=== PATIENT | male | born 1940 | race Caucasian/White ===

== ENCOUNTER → 2017-05-21 | Outpatient (CLI) | payer OTHER ==
[~2017-05-21] MED LIST: AMLO5 PO; ASPI81CH PO; ATOR40TA PO; CEFD300 PO; CHOL10002 PO; Cinnamon500 MG PO; DOCU100 PO; FISH OIL 1,0001 EAC1 PO; FOLI1 PO; FURO20 PO; HUMALOG 70/30 SQ; HYDCHL25 PO; INSUASPI SC; INSULANPEN SC; LOVA40 PO; METF500 PO; METO10 PO; METO50ER PO; METTREX2.5 PO; OXYACE5T PO; PIOG30 PO; POTA10T PO; RXOXYACE PO; RXPROM25 PO; TAMS.4ER PO; TRULICITY1.5 MG/0.5 SC; ZESTORETIC 20-121 EA PO; [UNRECOGNIZED DRUG - OTHER] PO
== END | disposition home or self-care (01) ==
LOC: LAB 13:06
DX: M86.172 Other acute osteomyelitis, left ankle and foot (principal)
CPT/HCPCS: 87070; 87077; 87186; 87205

== ENCOUNTER → 2018-07-18 | Outpatient (CLI) | payer MEDICARE | END | disposition home or self-care (01) | LOC: LAB EV 12:15 → LAB SHORT 12:15 | DX: T81.40XA Infection following a procedure, unspecified, initial encounter (principal) | CPT/HCPCS: 87070; 87205 ==

== ENCOUNTER → 2019-08-03 | Outpatient (CLI) | payer MEDICARE ==
[2019-08-03 17:46] LABS: Creatinine, Urine Random 42.4 mg/dL (27.00-270.00)
[2019-08-03 17:49] LABS: Microalb/Creat Ratio UR, Rand 344.34 mg/g (0.000-30.000)
== END ==
LOC: LAB SHORT 13:17 → LAB EV 13:17
PROVIDERS: Nurse Practitioner Family
DX: E11.65 Type 2 diabetes mellitus with hyperglycemia (principal)
CPT/HCPCS: 82043; 82570

== ENCOUNTER 2020-04-29 06:12 | Day surgery (SDC) | payer MEDICARE ==
[~2020-04-29] VITALS: Ht 177.8 cm; Wt 115.1 kg
[~2020-04-29 06:12] MED LIST changes: +ASPIR 8181 MG PO; +ATORVASTATIN CA80 MG PO; +BASAGLAR K100 UNIT/1 SC; +CARV3.125 PO; -CHOL10002 PO; +FURO40 PO; +HUMULIN 70100 UNIT/4 SC; +OMEGA-3 FISH O1 EAC6 PO; +VITAMIN D310 MC4 PO
--- NOTE | 2020-04-29 08:42 | NUR ---
04/29/20 0842 MICHELET BOBBY PT VSS ON ROOM AIR. IV PATENT. SBA TO RECLINER. PT TOLERATING PO INTAKE. DENIES NAUSEA/PAIN, REPORTS FOOT IS NUMB AT THIS TIME. DRESSING C/D/I. DEONTE ARBOLEDA ENGAGED IN DC TEACHING AND ALL QUESTIONS ASKED AND ANSWERED. PT'S SON TO PICK PT UP.
== END 2020-04-29 08:44 | disposition home or self-care (01) ==
LOC: ORSCSDS 06:12
PROVIDERS: Podiatrist Foot & Ankle Surgery
PROC: 0L8W0ZZ Division of Left Foot Tendon, Open Approach (ICD-10-PCS; principal; 2020-04-29 07:30)
PROC: 0SNQ0ZZ Release Left Toe Phalangeal Joint, Open Approach (ICD-10-PCS; principal; 2020-04-29 07:30)
DX: M20.42 Other hammer toe(s) (acquired), left foot (principal); I10 Essential (primary) hypertension; I25.10 Atherosclerotic heart disease of native coronary artery without angina pectoris; G47.33 Obstructive sleep apnea (adult) (pediatric); Z87.891 Personal history of nicotine dependence; E78.5 Hyperlipidemia, unspecified; E66.01 Morbid (severe) obesity due to excess calories; Z68.36 Body mass index [BMI] 36.0-36.9, adult; Z79.4 Long term (current) use of insulin; Z79.899 Other long term (current) drug therapy; Z79.82 Long term (current) use of aspirin
CPT/HCPCS: 82947; J0690; J2250; J2704; J3010; J7120

== ENCOUNTER → 2020-05-11 | Outpatient (CLI) | payer MEDICARE ==
[2020-05-11 12:31] LABS: BASOPHILS ABSOLUTE AUTO 0.06 K/mm3 (0.00-0.23); BASOPHILS PERCENT AUTO 1 % (0-2); EOSINOPHILS ABSOLUTE AUTO 0.21 K/mm3 (0.00-0.68); EOSINOPHILS PERCENT AUTO 2 % (0-6); Hematocrit 37.7 % (37.0-53.0); Hemoglobin 12.7 g/dL (13.5-17.5); IMMATURE GRAN ABSOLUTE AUTO 0.06 K/mm3 (0.00-0.10); IMMATURE GRAN PERCENT AUTO 1 % (0-1); LYMPHOCYTES ABSOLUTE AUTO 1.15 K/mm3 (0.84-5.20); LYMPHOCYTES PERCENT AUTO 10 % (21-46); MONOCYTES ABSOLUTE AUTO 0.58 K/mm3 (0.16-1.47); MONOCYTES PERCENT AUTO 5 % (4-13); Mean Corpuscular HGB 29.1 pg (26.0-34.0); Mean Corpuscular HGB Conc 33.7 g/dL (31.5-36.5); Mean Corpuscular Volume 87 fL (80-100); Mean Platelet Volume 10.6 fL (9.1-12.4); NEUTROPHILS ABSOLUTE AUTO 9.22 K/mm3 (1.96-9.15); NEUTROPHILS PERCENT AUTO 82 % (41-73); Platelet Count 268 K/mm3 (150-400); RDW Coefficient Variation 13.1 % (11.7-14.2); RDW Standard Deviation 40.8 fL (35.1-46.3); Red Blood Cell Count 4.36 M/mm3 (4.30-5.90); White Blood Cell Count 11.28 K/mm3 (4.00-11.30)
[2020-05-11 12:50] LABS: Albumin, Blood 3.6 g/dL (3.4-5.0); Bilirubin, Total 0.7 mg/dL (0.1-1.0); Bun/Creatinine Ratio 21.9 (12.0-20.0); Calcium, Blood 8.9 mg/dL (8.5-10.1); Creatinine, Blood 2.33 mg/dL (0.60-1.20); Globulin, Blood 3.5 g/dL (2.2-4.0); Total Protein, Blood 7.1 g/dL (6.4-8.2)
== END ==
LOC: LAB EV 12:27 → LAB SHORT 12:27
PROVIDERS: Physician Assistant
DX: E11.65 Type 2 diabetes mellitus with hyperglycemia (principal)
CPT/HCPCS: 80053; 83036; 85025

== ENCOUNTER 2020-06-07 00:52 | Day surgery (SDC) | payer MEDICARE | END 2020-06-07 22:53 | disposition home or self-care (01) | LOC: WOUND 00:52 | DX: E11.621 Type 2 diabetes mellitus with foot ulcer (principal); L97.522 Non-pressure chronic ulcer of other part of left foot with fat layer exposed; Z88.1 Allergy status to other antibiotic agents; Z88.0 Allergy status to penicillin; Z88.2 Allergy status to sulfonamides; Z87.891 Personal history of nicotine dependence | CPT/HCPCS: A9270; G0463 ==

== ENCOUNTER 2020-06-14 01:08 | Day surgery (SDC) | payer MEDICARE | END 2020-06-14 22:40 | disposition home or self-care (01) | LOC: WOUND 01:08 | DX: E11.621 Type 2 diabetes mellitus with foot ulcer (principal); L97.526 Non-pressure chronic ulcer of other part of left foot with bone involvement without evidence of necrosis; L97.522 Non-pressure chronic ulcer of other part of left foot with fat layer exposed; E11.59 Type 2 diabetes mellitus with other circulatory complications | CPT/HCPCS: A9270 ==

== ENCOUNTER 2020-06-21 01:27 | Day surgery (SDC) | payer MEDICARE | END 2020-06-21 23:05 | disposition home or self-care (01) | LOC: WOUND 01:27 | DX: E11.621 Type 2 diabetes mellitus with foot ulcer (principal); L97.526 Non-pressure chronic ulcer of other part of left foot with bone involvement without evidence of necrosis; L97.522 Non-pressure chronic ulcer of other part of left foot with fat layer exposed; E11.59 Type 2 diabetes mellitus with other circulatory complications | CPT/HCPCS: A9270 ==

== ENCOUNTER 2020-06-28 00:12 | Day surgery (SDC) | payer MEDICARE | END 2020-06-28 22:59 | disposition home or self-care (01) | LOC: WOUND 00:12 | DX: E11.621 Type 2 diabetes mellitus with foot ulcer (principal); L97.526 Non-pressure chronic ulcer of other part of left foot with bone involvement without evidence of necrosis; E11.59 Type 2 diabetes mellitus with other circulatory complications | CPT/HCPCS: A9270; G0463 ==

== ENCOUNTER 2020-07-05 00:46 | Day surgery (SDC) | payer MEDICARE | END 2020-07-05 22:56 | disposition home or self-care (01) | LOC: WOUND 00:46 | DX: E11.621 Type 2 diabetes mellitus with foot ulcer (principal); L97.529 Non-pressure chronic ulcer of other part of left foot with unspecified severity; E11.59 Type 2 diabetes mellitus with other circulatory complications | CPT/HCPCS: G0463 ==

== ENCOUNTER 2020-07-19 00:24 | Day surgery (SDC) | payer MEDICARE | END 2020-07-19 22:49 | disposition home or self-care (01) | LOC: WOUND 00:24 | DX: Z09 Encounter for follow-up examination after completed treatment for conditions other than malignant neoplasm (principal); Z86.31 Personal history of diabetic foot ulcer; E11.59 Type 2 diabetes mellitus with other circulatory complications | CPT/HCPCS: G0463 ==

== ENCOUNTER 2020-11-13 20:41 | Observation (INO) | payer MEDICARE ==
[~2020-11-13] VITALS: Ht 177.8 cm; Wt 124.7 kg
[2020-11-13 21:39] LABS: Source, Urine Clean Catch
[2020-11-13 21:54] LABS: Appearance, Urine Clear (Clear); Bilirubin, Urine Neg (Neg); Blood, Urine 4+ (Neg); Color, Urine Yellow (P-Yellow); Glucose Qualitative, Urine 4+ (Neg); Ketones, Urine Neg (Neg); Leukocyte Esterase, Urine Neg (Neg); Nitrite, Urine Neg (Neg); Protein, Urine 4+ (Neg); Specific Gravity, Urine 1.015 (1.003-1.022); Urobilinogen, Urine NORM (Normal)
[2020-11-13 22:03] LABS: BASOPHILS ABSOLUTE AUTO 0.02 K/mm3 (0.00-0.23); BASOPHILS PERCENT AUTO 0 % (0-2); EOSINOPHILS ABSOLUTE AUTO 0.12 K/mm3 (0.00-0.68); EOSINOPHILS PERCENT AUTO 1 % (0-6); Hematocrit 39.5 % (37.0-53.0); Hemoglobin 13.1 g/dL (13.5-17.5); IMMATURE GRAN ABSOLUTE AUTO 0.04 K/mm3 (0.00-0.10); IMMATURE GRAN PERCENT AUTO 0 % (0-1); LYMPHOCYTES PERCENT AUTO 7 % (21-46); MONOCYTES PERCENT AUTO 5 % (4-13); Mean Corpuscular HGB 28.5 pg (26.0-34.0); Mean Corpuscular HGB Conc 33.2 g/dL (31.5-36.5); Mean Corpuscular Volume 86 fL (80-100); Mean Platelet Volume 10.3 fL (9.1-12.4); NEUTROPHILS ABSOLUTE AUTO 10.43 K/mm3 (1.96-9.15); NEUTROPHILS PERCENT AUTO 87 % (41-73); Platelet Count 198 K/mm3 (150-400); RDW Coefficient Variation 13.2 % (11.7-14.2); RDW Standard Deviation 41.6 fL (35.1-46.3); Red Blood Cell Count 4.59 M/mm3 (4.30-5.90); White Blood Cell Count 12.01 K/mm3 (4.00-11.30)
[2020-11-13 22:04] LABS: Amorphous Light (0-Heavy); Bacteria Rare /hpf; Red Blood Cells, Urine 25-50 /hpf (0-2); Squamous Epithelial Cells Rare /hpf (Few); White Blood Cells, Urine 0-2 /hpf (0-5)
[2020-11-13 22:23] LABS: Albumin/Globulin Ratio 0.8 (0.8-1.8); Bilirubin, Total 0.8 mg/dL (0.1-1.0); Bun/Creatinine Ratio 17.2 (12.0-20.0); Calcium, Blood 8.9 mg/dL (8.5-10.1); Creatinine, Blood 1.22 mg/dL (0.60-1.20); Globulin, Blood 3.9 g/dL (2.2-4.0); Potassium, Blood 4.7 mmol/L (3.5-5.5); Total Protein, Blood 6.9 g/dL (6.4-8.2)
[2020-11-14 05:07] LABS: BASOPHILS ABSOLUTE AUTO 0.02 K/mm3 (0.00-0.23); BASOPHILS PERCENT AUTO 0 % (0-2); EOSINOPHILS ABSOLUTE AUTO 0.09 K/mm3 (0.00-0.68); EOSINOPHILS PERCENT AUTO 1 % (0-6); Hematocrit 36.7 % (37.0-53.0); Hemoglobin 12.2 g/dL (13.5-17.5); IMMATURE GRAN ABSOLUTE AUTO 0.05 K/mm3 (0.00-0.10); IMMATURE GRAN PERCENT AUTO 1 % (0-1); LYMPHOCYTES ABSOLUTE AUTO 0.77 K/mm3 (0.84-5.20); LYMPHOCYTES PERCENT AUTO 7 % (21-46); MONOCYTES PERCENT AUTO 7 % (4-13); Mean Corpuscular HGB 28.8 pg (26.0-34.0); Mean Corpuscular HGB Conc 33.2 g/dL (31.5-36.5); Mean Corpuscular Volume 87 fL (80-100); NEUTROPHILS ABSOLUTE AUTO 8.92 K/mm3 (1.96-9.15); NEUTROPHILS PERCENT AUTO 85 % (41-73); Platelet Count 162 K/mm3 (150-400); RDW Coefficient Variation 13.2 % (11.7-14.2); RDW Standard Deviation 41.6 fL (35.1-46.3); Red Blood Cell Count 4.23 M/mm3 (4.30-5.90); White Blood Cell Count 10.55 K/mm3 (4.00-11.30)
[2020-11-14 05:35] LABS: Bun/Creatinine Ratio 15.1 (12.0-20.0); Calcium, Blood 8.6 mg/dL (8.5-10.1); Creatinine, Blood 1.26 mg/dL (0.60-1.20); Potassium, Blood 3.8 mmol/L (3.5-5.5)
--- NOTE | 2020-11-14 07:51 | NUR ---
PT ADMITTED FROM ED. PT HYPERTENSIVE. RECHECK BP EVEN HIGHER, IV PAIN MED GIVEN. RECHECK BP SYSTOLIC IN 150'S. PT DECLINING PAIN ALL NIGHT. IVF INFUSING. DENIES CP, SOB. PT NPO PER ORDER. PT IMPULSIVE AT TIMES, BED ALARM IN PLACE. PT UNSTEADY ON FEET, 1 PERSON ASSIST.
--- NOTE | 2020-11-14 13:32 | NUR ---
PT CONTINUES TO REFUSE USE OF CALL LIGHT, CONTINUES TO SET OF TAB ALARM DURING SHIFT. UNSTEADY ON HIS FEET. ATTEMPTED TO ASSIST PATIENT TO RESTROOM OR OFFER URINAL, BOTH REFUSED. SPOKE WITH PATIENT ABOUT HIS RISK OF FALLING AND HE DECLINES DISCUSSION. CALLING HIS SON ON THE PHONE AND ASKING SON TO PICK HIM UP.
--- NOTE | 2020-11-14 15:17 | NUR ---
SPOKE WITH PT'S SON. ACCORDING TO HIM PT HAS BEEN SHOWING AN INCREASE IN CONFUSION AND FORGETFULLNESS AT HOME.
--- NOTE | 2020-11-14 16:36 | NUR ---
SHIFT SUMMARY PT HAS BEEN CONFUSED AND FORGETFUL AT TIMES TODAY. SPOKE WITH PATIENTS SON WHO CONFIRMED THIS HAS BEEN INCREASING AT HOME. PT CONTINUES TO WANT TO LEAVE AND CALLS SON FREQUENTLY TO PICK HIM UP. PT HAS DENIED PAIN DURING SHIFT AND REPORTS GAS. VOIDS IN TOILET REFUSES TO ALLOW URINAL. DOES NOT USE CALL LIGHT. ADVANCED TO CLEARS AND HAS TOLERATED BROTH AND ICE WATER WELL, DENIES AN INCREASE IN PAIN. IV FLUIDS INFUSING, PLAN TO SEE IF PT TOLERATES WELL AND POSSIBLY DISCHARGE TODAY.
--- NOTE | 2020-11-14 19:43 | NUR ---
DISCHARGE PT LEFT AT 1830 VIA WHEELCHAIR WITH DAUGHTER. DISCHARGE INSTRUCTIONS GONE OVER AT LENGTH WITH PATIENT AND DAUGHTER. THEY PLAN TO TAKE ALL MEDICATIONS WITH THEM TO THEIR FOLLOW UP APPOINTMENT AT [place] [place]. THE PATIENT TOLERATED HIS PO INTAKE WELL WITH NO INCREASE IN PAIN. IV REMOVED PRIOR TO DISCHARGE.
== END 2020-11-14 18:29 | disposition home or self-care (01) ==
LOC: ER 20:41 → SURS 20:42
PROVIDERS: Physician Assistant; ADMIT Family Medicine
DX: K91.89 Other postprocedural complications and disorders of digestive system (principal); K85.90 Acute pancreatitis without necrosis or infection, unspecified; E11.65 Type 2 diabetes mellitus with hyperglycemia; I25.10 Atherosclerotic heart disease of native coronary artery without angina pectoris; I12.9 Hypertensive chronic kidney disease with stage 1 through stage 4 chronic kidney disease, or unspecified chronic kidney disease; E11.22 Type 2 diabetes mellitus with diabetic chronic kidney disease; N18.30 Chronic kidney disease, stage 3 unspecified; E87.1 Hypo-osmolality and hyponatremia; D64.9 Anemia, unspecified; Z79.899 Other long term (current) drug therapy; Z79.4 Long term (current) use of insulin; Z88.1 Allergy status to other antibiotic agents; Z88.0 Allergy status to penicillin; Z88.2 Allergy status to sulfonamides; Z95.1 Presence of aortocoronary bypass graft; Z87.891 Personal history of nicotine dependence; Y84.8 Other medical procedures as the cause of abnormal reaction of the patient, or of later complication, without mention of misadventure at the time of the procedure; Y73.0 Diagnostic and monitoring gastroenterology and urology devices associated with adverse incidents
CPT/HCPCS: 36415; 74177; 80048; 80053; 81001; 82947; 83690; 85025; 93005; 93010; 96361; 96374; 99285-25; G0378; J1650; J1815; J3010; J7030; J7120; Q9967

== ENCOUNTER 2020-12-08 12:44 | Inpatient (IN) | payer MEDICARE ==
[~2020-12-08] VITALS: Ht 177.8 cm; Wt 109.6 kg
[2020-12-08 13:23] LABS: BASOPHILS ABSOLUTE AUTO 0.04 K/mm3 (0.00-0.23); BASOPHILS PERCENT AUTO 1 % (0-2); EOSINOPHILS ABSOLUTE AUTO 0.21 K/mm3 (0.00-0.68); EOSINOPHILS PERCENT AUTO 3 % (0-6); Hematocrit 37.4 % (37.0-53.0); Hemoglobin 12.4 g/dL (13.5-17.5); IMMATURE GRAN ABSOLUTE AUTO 0.02 K/mm3 (0.00-0.10); IMMATURE GRAN PERCENT AUTO 0 % (0-1); LYMPHOCYTES ABSOLUTE AUTO 1.08 K/mm3 (0.84-5.20); LYMPHOCYTES PERCENT AUTO 13 % (21-46); MONOCYTES ABSOLUTE AUTO 0.39 K/mm3 (0.16-1.47); MONOCYTES PERCENT AUTO 5 % (4-13); Mean Corpuscular HGB 28.2 pg (26.0-34.0); Mean Corpuscular HGB Conc 33.2 g/dL (31.5-36.5); Mean Corpuscular Volume 85 fL (80-100); Mean Platelet Volume 10.3 fL (9.1-12.4); NEUTROPHILS ABSOLUTE AUTO 6.73 K/mm3 (1.96-9.15); NEUTROPHILS PERCENT AUTO 79 % (41-73); Platelet Count 213 K/mm3 (150-400); RDW Coefficient Variation 14.4 % (11.7-14.2); RDW Standard Deviation 44.9 fL (35.1-46.3); Red Blood Cell Count 4.39 M/mm3 (4.30-5.90); White Blood Cell Count 8.47 K/mm3 (4.00-11.30)
[2020-12-08 14:00] LABS: Alanine Aminotransfer (ALT/SGP 31 U/L (12-78); Albumin, Blood 2.5 g/dL (3.4-5.0); Albumin/Globulin Ratio 0.7 (0.8-1.8); Alk Phos 164 U/L (50-136); Anion Gap 6 mmol/L (6-16); Aspartate Aminotrans (AST/SGOT 16 U/L (12-37); Bilirubin, Total 0.7 mg/dL (0.1-1.0); Blood Urea Nitrogen 17 mg/dL (8-24); Bun/Creatinine Ratio 13.2 (12.0-20.0); CO2, Blood 28 mmol/L (21-32); Calcium, Blood 8.6 mg/dL (8.5-10.1); Chloride, Blood 104 mmol/L (98-108); Creatinine, Blood 1.29 mg/dL (0.60-1.20); Globulin, Blood 3.8 g/dL (2.2-4.0); Glomerular Filtration Rate 54 (60-); Glucose, Blood 216 mg/dL (70-99); Potassium, Blood 4.4 mmol/L (3.5-5.5); Sodium, Blood 138 mmol/L (136-145); Total Protein, Blood 6.3 g/dL (6.4-8.2); Troponin I <0.015 ng/mL (0.000-0.040)
[2020-12-08 18:49] LABS: SARS-Cov-2 (COVID-19) PCR, MMC NEGATIVE (NEGATIVE)
--- NOTE | 2020-12-08 23:02 | NUR ---
PATIENT IS A NEW ADMIT FROM THE ED. ARRIVED VIA W/C AND ONE ASSIST TO BED. AXOX 3 AND ON ROOM AIR. USING URINAL AT BEDSIDE. IV LASIX GIVEN IN ED. TELEMETRY PLACED AND TECH REPORTS NSR 76 W/PVC. HYPERTENSIVE ON ADMIT. EDEMA TO BLE. ORIENTED TO ROOM AND CALL LIGHT SYSTEM. WARM BLANKET PROVIDED. PATIENT REPORTS WANTING TO REST AFTER ASSESSMENT WITH URINAL AT BEDSIDE.
--- NOTE | 2020-12-08 23:54 | NUR ---
PATIENT WENT OUT FOR IMAGING, CAT SCAN AND BACK VIA W/C. TOLERATED WELL. BACK IN BED.
--- NOTE | 2020-12-09 03:54 | NUR ---
SHIFT SUMMARY PATIENT HAD NO ACUTE CHANGES OBSERVED. AXOX 3 AND SBA USING URINAL AT BEDSIDE. PIV REMAINS INTACT. SOCK FOLDER REPORTS NSR 76 W/PVC. EDEMA +3 TO BLE. IV LASIX GIVEN IN ED. HYPERTENSIVE ON ADMIT AND 158/88 FOR AM VITALS. DENIES CHEST PAIN, SOB, AND N/V. REPORTS LIVE WITH SPOUSE AND DAUGHTER STOPS IN TO HELP. CALL LIGHT IN REACH. BED IN LOWEST POSITION. WILL CONTINUE TO MONITOR UNTIL DAY SHIFT NURSE ASSUMES CARE.
[2020-12-09 05:42] LABS: BASOPHILS ABSOLUTE AUTO 0.04 K/mm3 (0.00-0.23); BASOPHILS PERCENT AUTO 1 % (0-2); EOSINOPHILS ABSOLUTE AUTO 0.18 K/mm3 (0.00-0.68); EOSINOPHILS PERCENT AUTO 3 % (0-6); Hematocrit 37.8 % (37.0-53.0); Hemoglobin 12.3 g/dL (13.5-17.5); IMMATURE GRAN ABSOLUTE AUTO 0.02 K/mm3 (0.00-0.10); IMMATURE GRAN PERCENT AUTO 0 % (0-1); LYMPHOCYTES ABSOLUTE AUTO 1.39 K/mm3 (0.84-5.20); LYMPHOCYTES PERCENT AUTO 20 % (21-46); MONOCYTES PERCENT AUTO 7 % (4-13); Mean Corpuscular HGB 27.7 pg (26.0-34.0); Mean Corpuscular HGB Conc 32.5 g/dL (31.5-36.5); Mean Corpuscular Volume 85 fL (80-100); NEUTROPHILS ABSOLUTE AUTO 4.87 K/mm3 (1.96-9.15); NEUTROPHILS PERCENT AUTO 70 % (41-73); Platelet Count 183 K/mm3 (150-400); RDW Coefficient Variation 14.4 % (11.7-14.2); RDW Standard Deviation 43.9 fL (35.1-46.3); Red Blood Cell Count 4.44 M/mm3 (4.30-5.90)
[2020-12-09 06:14] LABS: Albumin, Blood 2.3 g/dL (3.4-5.0); Albumin/Globulin Ratio 0.6 (0.8-1.8); Bilirubin, Total 0.8 mg/dL (0.1-1.0); Bun/Creatinine Ratio 13.7 (12.0-20.0); Calcium, Blood 8.1 mg/dL (8.5-10.1); Creatinine, Blood 1.24 mg/dL (0.60-1.20); Globulin, Blood 3.6 g/dL (2.2-4.0); Potassium, Blood 3.9 mmol/L (3.5-5.5); Total Protein, Blood 5.9 g/dL (6.4-8.2)
[2020-12-09] MEDS ORDERED: ZESTRIL40 M1 PO (07:41)
--- NOTE | 2020-12-09 11:00 | NUR ---
ADMIT: 12/09/20 DISCHARGE: TBD DX: CHF EXAC CC: Juan Dugan RESIDENCE: HOME WITH - [id number], [place] [address] NEXT OF KIN/CONTACT: MICHELLE JOHNSON, - [phone] AND ALANA CLEANING, SON - [phone] DME: CPAP, DM SUPPLIES CCM: Christine Gillespie [facility] HHC/HOSPICE PRIOR TO ADMIT: NONE UPDATE 12/09/20: PT. ADMITTED FOR CHF EXACERBATION. PT. IS A HOSPITAL RE-ADMIT PER NOTES. POTENTIALLY NOT TAKING HIS MEDICATION PRESCRIBED INCLUDING LASIX. HE WAS ADMITTED ON SAT. 11/13/20 AND D/C ON 11/14/20 (PANCREATITIS). [facility] CARE MANAGEMENT DID NOT WORK WITH PATIENT AT THAT TIME HE WAS ADMITTED AND DISCHARGED OVER THE WEEKEND. IN READING THROUGH THE PHYSICIANS NOTES FROM THAT HOSPITAL STAY, PT. WAS INSISTENT THAT HE DISCHARGE FROM THE HOSPITAL. DR. BROWER RECONCILED HIS MEDICATION AND NOTED THAT HIS LIST GIVEN TO THE ED WAS NOT MATCHING THE LIST OF MEDICATIONS THAT HE WAS SUPPOSED TO BE TAKING. CONSIDERABLE AMOUNT OF TIME SPENT RECONCILING MEDICATIONS. FAMILY WAS ADVISED TO BRING ALL MEDICATIONS TO HOSPITAL F/U VISIT. C WAS ALSO ORDERED AT THAT TIME. IN REVIEWING THE [facility] EMR NOTES, I DO NOT SEE ANY CORRESPONDENCE FROM [facility]. I AM NOT SURE BASED ON [facility] RECORDS WHERE THE PREVIOUS ORDER WAS SENT. I HAVE LEFT A MESSAGE FOR [facility] TO RETURN CALL TO FIND OUT IF THEY HAD RECEIVED A REFERRAL. PT. HAS BEEN REFERRED TO CHRONIC CARE MANAGEMENT AT [facility]. ASSIGNED TO CHRISTINE GILLESPIE LPN AND SEEING HER MONTHLY. HE WAS SCHEDULED ON 11/24/20 FOR A VISIT WITH CHRISTINE AND CANCELLED. PER NOTES FROM DR. BROWER DURING LAST HOSPITAL STAY, IT APPEARS THAT PT. WAS NO LONGER WANTING CCM SERVICES. HE CERTAINLY WOULD BENEFIT FROM CCM. PLAN TO ASSESS LIVING SITUATION AND DETERMINE IF PT. HAS THE CARE/SUPPORT IN THE HOME THAT HE NEEDS. ANTICIPATED NEEDS AT TIME OF DISCHARGE TO INCLUDE: HOME HEALTH CARE/CCM, POTENTIAL CAREGIVER SUPPORT, DISCUSSION REGARDING MEDICATION COMPLIANCE, DETAILED MED LIST FROM RECONCILED [facility] EMR. VISIT SPECIFICALLY TO BRING IN MEDICATIONS AND DISPOSE OF THOSE THAT HE SHOULD NO LONGER BE TAKING. CONSIDER MONTHLY PILL CONTAINER TO BE SET UP WITH MEDICATIONS MONTHLY BE CCM OR EFM STAFF.
--- NOTE | 2020-12-09 22:14 | NUR ---
CBG 378. HOSPITALIST DR POSADAS NOTIFIED AND ORDER TO GIVEN HS DOSE OF HUMALOG SLIDING SCALE X ONE.
--- NOTE | 2020-12-10 03:17 | NUR ---
SHIFT SUMMARY PATIENT HAD NO ACUTE CHANGES OBSERVED. AXO 4 AND SBA TO BR. CBG 373 AND HUMALOG GIVEN PER HS LOW SLIDING SCALE X ONE PER HOSPITALIST DR POSADAS. PIV REMAINS INTACT. OIL AND GAS SPECIALIST REPORTS SR 62 W/BBB AND FIRST DEGREE. FLUID RESTRICTIONS 2,000 mL. USES URINAL AT BEDSIDE/CHAIR. VSS/AFEBRILE. DENIES PAIN, SOB, AND N/V. UP IN CHAIR THIS SHIFT. CALL LIGHT IN REACH. BED IN LOWEST POSITION. TM
[2020-12-10 05:38] LABS: BASOPHILS ABSOLUTE AUTO 0.04 K/mm3 (0.00-0.23); BASOPHILS PERCENT AUTO 1 % (0-2); EOSINOPHILS ABSOLUTE AUTO 0.26 K/mm3 (0.00-0.68); EOSINOPHILS PERCENT AUTO 4 % (0-6); Hematocrit 37.9 % (37.0-53.0); Hemoglobin 12.5 g/dL (13.5-17.5); IMMATURE GRAN ABSOLUTE AUTO 0.01 K/mm3 (0.00-0.10); IMMATURE GRAN PERCENT AUTO 0 % (0-1); LYMPHOCYTES PERCENT AUTO 18 % (21-46); MONOCYTES ABSOLUTE AUTO 0.52 K/mm3 (0.16-1.47); MONOCYTES PERCENT AUTO 8 % (4-13); Mean Corpuscular HGB 28.2 pg (26.0-34.0); Mean Corpuscular Volume 85 fL (80-100); Mean Platelet Volume 10.2 fL (9.1-12.4); NEUTROPHILS ABSOLUTE AUTO 4.51 K/mm3 (1.96-9.15); NEUTROPHILS PERCENT AUTO 69 % (41-73); Platelet Count 184 K/mm3 (150-400); RDW Coefficient Variation 14.4 % (11.7-14.2); RDW Standard Deviation 43.8 fL (35.1-46.3); Red Blood Cell Count 4.44 M/mm3 (4.30-5.90); White Blood Cell Count 6.54 K/mm3 (4.00-11.30)
[2020-12-10 05:57] LABS: Bun/Creatinine Ratio 16.6 (12.0-20.0); Calcium, Blood 8.9 mg/dL (8.5-10.1); Creatinine, Blood 1.57 mg/dL (0.60-1.20); Potassium, Blood 4.1 mmol/L (3.5-5.5)
--- NOTE | 2020-12-10 10:49 | NUR ---
PROLONGED QTC, PER STATE EDITOR, 0.51. DR SMILEY NOTIFIED VIA TELEPHONE. NO NEW ORDERS.
--- NOTE | 2020-12-10 23:16 | NUR ---
med tele reported bi geminy and then trigeminy into the 140's. Pt had PCV's this am, but no noted bi or tri geminy. VSS. BP: 156/58, T: 99.2 temporal, Resps: 13. sats: 92% on room air. Charge nurse notified and call placed to MD pulpwood contractor. Dr Guardado ordered stat Troponin. Pt denies chest pain and SOB. Call light in reach
--- NOTE | 2020-12-11 00:10 | NUR ---
troponin level WNL. See documentation
--- NOTE | 2020-12-11 04:21 | NUR ---
SUGAR COATING HAND SUMMARY ADMITTED FOR CHF EXACERBATION. PT IS FULL CODE. PT HAD EPISODE OF INCREASED HR - 145 PER BALL ROLLING MACHINE OPERATOR. RATE THEN DROPPED BACK INTO THE 70S BUT PT BEGAN SHOWING BIGEMINY/TRIGEMINY ON THE TELE MONITOR. PT HAD PVCS ALL DAY YESTERDAY, BUT NO OCCURRENCES OF BIGEMINY OR TRIGEMINY. MD WAS CONTACTED. STAT TROPONIN WAS NEGATIVE. PT DENIED ANY CHEST PAIN OR OTHER SYMPTOMS AT THE TIME OF THE OCCURRENCE. PT HAS BEEN RESTING COMFORTABLY SINCE. CALL LIGHT WITHIN REACH.
[2020-12-11 06:52] LABS: BASOPHILS ABSOLUTE AUTO 0.03 K/mm3 (0.00-0.23); BASOPHILS PERCENT AUTO 1 % (0-2); EOSINOPHILS ABSOLUTE AUTO 0.22 K/mm3 (0.00-0.68); EOSINOPHILS PERCENT AUTO 4 % (0-6); Hematocrit 37.4 % (37.0-53.0); Hemoglobin 12.1 g/dL (13.5-17.5); IMMATURE GRAN ABSOLUTE AUTO 0.01 K/mm3 (0.00-0.10); IMMATURE GRAN PERCENT AUTO 0 % (0-1); LYMPHOCYTES ABSOLUTE AUTO 1.38 K/mm3 (0.84-5.20); LYMPHOCYTES PERCENT AUTO 24 % (21-46); MONOCYTES ABSOLUTE AUTO 0.41 K/mm3 (0.16-1.47); MONOCYTES PERCENT AUTO 7 % (4-13); Mean Corpuscular HGB 27.9 pg (26.0-34.0); Mean Corpuscular HGB Conc 32.4 g/dL (31.5-36.5); Mean Corpuscular Volume 86 fL (80-100); Mean Platelet Volume 10.5 fL (9.1-12.4); NEUTROPHILS ABSOLUTE AUTO 3.76 K/mm3 (1.96-9.15); NEUTROPHILS PERCENT AUTO 65 % (41-73); Platelet Count 181 K/mm3 (150-400); RDW Coefficient Variation 14.4 % (11.7-14.2); RDW Standard Deviation 44.8 fL (35.1-46.3); Red Blood Cell Count 4.33 M/mm3 (4.30-5.90); White Blood Cell Count 5.81 K/mm3 (4.00-11.30)
[2020-12-11 07:13] LABS: Bun/Creatinine Ratio 19.8 (12.0-20.0); Calcium, Blood 8.1 mg/dL (8.5-10.1); Creatinine, Blood 1.62 mg/dL (0.60-1.20); Potassium, Blood 4.1 mmol/L (3.5-5.5)
--- NOTE | 2020-12-11 19:11 | NUR ---
PT MADE NO COMPLAINTS OF SOB OR PAIN THIS SHIFT. PT REMAINS ALERT AND ORIENTED X4, IV WNL. BED IN LOW POSITION AND CALL LIGHT WITHIN. STAFF WILL CONTINUE TO MONITOR.
[2020-12-12 06:10] LABS: BASOPHILS ABSOLUTE AUTO 0.03 K/mm3 (0.00-0.23); BASOPHILS PERCENT AUTO 1 % (0-2); EOSINOPHILS ABSOLUTE AUTO 0.24 K/mm3 (0.00-0.68); EOSINOPHILS PERCENT AUTO 4 % (0-6); Hematocrit 37.9 % (37.0-53.0); Hemoglobin 12.5 g/dL (13.5-17.5); IMMATURE GRAN ABSOLUTE AUTO 0.01 K/mm3 (0.00-0.10); IMMATURE GRAN PERCENT AUTO 0 % (0-1); LYMPHOCYTES ABSOLUTE AUTO 1.55 K/mm3 (0.84-5.20); LYMPHOCYTES PERCENT AUTO 24 % (21-46); MONOCYTES ABSOLUTE AUTO 0.47 K/mm3 (0.16-1.47); MONOCYTES PERCENT AUTO 7 % (4-13); Mean Corpuscular Volume 85 fL (80-100); Mean Platelet Volume 10.1 fL (9.1-12.4); NEUTROPHILS ABSOLUTE AUTO 4.13 K/mm3 (1.96-9.15); NEUTROPHILS PERCENT AUTO 64 % (41-73); Platelet Count 185 K/mm3 (150-400); RDW Coefficient Variation 14.2 % (11.7-14.2); RDW Standard Deviation 43.8 fL (35.1-46.3); Red Blood Cell Count 4.46 M/mm3 (4.30-5.90); White Blood Cell Count 6.43 K/mm3 (4.00-11.30)
--- NOTE | 2020-12-12 06:28 | NUR ---
SHIFT SUMMARY ADMITTED FOR CHF EXACERBATION. PT IS FULL CODE. PT CONTINUES TO GET UP WITHOUT USING CALL LIGHT SO BED ALARM WAS TURNED ON FOR FALL PREVENTION. STILL BEING MONITORED WITH TELE. 2000 ML FLUID RESTRICTION MAINTAINED. NO OTHER CONCERNS AT THIS TIME.
[2020-12-12 06:31] LABS: Bun/Creatinine Ratio 21.7 (12.0-20.0); Calcium, Blood 8.2 mg/dL (8.5-10.1); Creatinine, Blood 1.57 mg/dL (0.60-1.20); Magnesium, Blood 2.3 mg/dL (1.6-2.4); Potassium, Blood 4.2 mmol/L (3.5-5.5)
--- NOTE | 2020-12-12 11:33 | NUR ---
TELE REPORTS PT HR AT 140 AND ABOVE AT 1055. PER MD SMILEY, PUSH METOPROLOL Q20 MIN X3 IF NO IMPROVEMENT. FIRST DOSE AT 1118, WITH NO RESULTS (HR 142 AND BP 94/58 AT 1138). PLACED CALL TO MD SMILEY TO PROCEED WITH NO CONTACT MADE. MSG LEFT. (93/55 AND 144 AT 1143). AT 1150 WAS IN CONTACT WITH . PHONE ORDER TO HOLD METOPROLOL SHE HAS PLANS FOR OTHER MEDS.
--- NOTE | 2020-12-12 12:32 | NUR ---
Transfer In-House Patient c/o mild numbness to BUE, L > R which has somewhat resolved. Still c/o SOB and not feeling well. Encouraged to stay in bed and call for assistance. New orders from Dr. Darden. Notified Dr. Darden RE new meds unable to give on Med floor d/t unit protocol. Received T.O. to transfer patient to PCU. Also discussed EKG results: Wide QRS tachycardia.
--- NOTE | 2020-12-12 13:04 | NUR ---
RECEIVED CALL FROM TELE AT 1250 RE PT CONVERTING BACK TO SR AT 84 WITH OCCASIONAL PVC'S. CALLED MD SMILEY. NEW ORDERS TO KEEP PT ON OUR UNIT (NO TRANSFER TO PCU) AND TO CANCEL AMIODERONE DRIP.
--- NOTE | 2020-12-12 18:39 | NUR ---
PT RESTING IN BED AFTER DINNER AND PM ULTRASOUND MANAGER. PT MAKES NO C/O OF CHEST PAIN OR SOB AT THIS TIME. PT STATES "I JUST FEEL FUZZY SOMETIMES." PT ALSO STATES HE HAS A HX OF LEFT SHOULDER PAIN, NONE DURRING HIS STAY HERE. PT ATE ALL THREE MEALS. IS ORIENTED X4 WITH MILD CONFUSION. STAFF WILL CONT. TO MONITOR.
[2020-12-12 20:52] LABS: Source, Urine Voided
[2020-12-12 20:57] LABS: Bilirubin, Urine Neg (Neg); Blood, Urine 1+ (Neg); Glucose Qualitative, Urine 2+ (Neg); Ketones, Urine Neg (Neg); Leukocyte Esterase, Urine Neg (Neg); Nitrite, Urine Neg (Neg); Protein, Urine 3+ (Neg); Urobilinogen, Urine NORM (Normal)
[2020-12-12 20:58] LABS: Appearance, Urine Clear (Clear); Color, Urine Pale Yellow (P-Yellow)
[2020-12-12 21:04] LABS: Red Blood Cells, Urine 0-2 /hpf (0-2); Squamous Epithelial Cells Rare /hpf (Few); White Blood Cells, Urine 0-2 /hpf (0-5)
[2020-12-12 21:05] LABS: Bacteria Rare /hpf
[2020-12-12 21:07] LABS: Hyaline Casts 0-2 /lpf (0-2)
--- NOTE | 2020-12-13 03:45 | NUR ---
CLINICAL NURSE SPECIALIST SUMMARY ADMITTED FOR CHF EXACERBATION AND DIURESIS. PT IS FULL CODE. PT USING CALL LIGHT THROUGHOUT THE NIGHT FOR BATHROOM ASSISTANCE. MINIMAL ASSISTANCE NEEDED. PT HAD ONE EPISODE OF BRADYCARDIA INTO THE 40S FOR AROUND 10 SECONDS, THEN RETURNING TO THE 60S. PT DENIES SYMPTOMS AT THAT TIME. NO OTHER CONCERNS THIS SHIFT. CALL LIGHT WITHIN REACH.
[2020-12-13 06:03] LABS: BASOPHILS ABSOLUTE AUTO 0.05 K/mm3 (0.00-0.23); BASOPHILS PERCENT AUTO 1 % (0-2); EOSINOPHILS ABSOLUTE AUTO 0.34 K/mm3 (0.00-0.68); EOSINOPHILS PERCENT AUTO 5 % (0-6); Hematocrit 36.7 % (37.0-53.0); Hemoglobin 12.1 g/dL (13.5-17.5); IMMATURE GRAN ABSOLUTE AUTO 0.04 K/mm3 (0.00-0.10); IMMATURE GRAN PERCENT AUTO 1 % (0-1); LYMPHOCYTES ABSOLUTE AUTO 1.72 K/mm3 (0.84-5.20); LYMPHOCYTES PERCENT AUTO 25 % (21-46); MONOCYTES ABSOLUTE AUTO 0.46 K/mm3 (0.16-1.47); MONOCYTES PERCENT AUTO 7 % (4-13); Mean Corpuscular Volume 85 fL (80-100); Mean Platelet Volume 10.4 fL (9.1-12.4); NEUTROPHILS PERCENT AUTO 63 % (41-73); Platelet Count 173 K/mm3 (150-400); RDW Coefficient Variation 14.2 % (11.7-14.2); RDW Standard Deviation 43.8 fL (35.1-46.3); Red Blood Cell Count 4.32 M/mm3 (4.30-5.90); White Blood Cell Count 7.01 K/mm3 (4.00-11.30)
[2020-12-13 06:30] LABS: Albumin, Blood 2.5 g/dL (3.4-5.0); Albumin/Globulin Ratio 0.7 (0.8-1.8); Bilirubin, Total 0.6 mg/dL (0.1-1.0); Bun/Creatinine Ratio 21.6 (12.0-20.0); Creatinine, Blood 1.67 mg/dL (0.60-1.20); Globulin, Blood 3.5 g/dL (2.2-4.0); Potassium, Blood 4.3 mmol/L (3.5-5.5); Thyroid Stimulating Hormone 4.46 uIU/mL (0.360-4.800)
--- NOTE | 2020-12-13 19:38 | NUR ---
SUMM- PT UP IN CHAIR MOST OF THE DAY. VSS, TELE 70'S WITH PAC'S. ON FLUID RESITRICTION AND BUMEX FOR DIURESING. VOIDED 1100ML TODAY AND 2000ML INTAKE, NOTIFIED NOC TO GO SPARINGLY ON FLUIDS. CONT WITH LE EDEMA. DENIES CP, NO ABNORMAL CARDIAC RHYTHMS NOTED TODAY. PLAN FOR DC TOMORROW ALTHOUGH ORDERS WRITTEN THIS PM. SANDEEP DEL RIO CALLED AND NOTIFIED RN THAT DC WOULD BE FOR AM 12/14
[2020-12-14 06:06] LABS: BASOPHILS ABSOLUTE AUTO 0.05 K/mm3 (0.00-0.23); BASOPHILS PERCENT AUTO 1 % (0-2); EOSINOPHILS ABSOLUTE AUTO 0.32 K/mm3 (0.00-0.68); EOSINOPHILS PERCENT AUTO 4 % (0-6); Hematocrit 39.8 % (37.0-53.0); Hemoglobin 13.1 g/dL (13.5-17.5); IMMATURE GRAN ABSOLUTE AUTO 0.03 K/mm3 (0.00-0.10); IMMATURE GRAN PERCENT AUTO 0 % (0-1); LYMPHOCYTES ABSOLUTE AUTO 2.14 K/mm3 (0.84-5.20); LYMPHOCYTES PERCENT AUTO 28 % (21-46); MONOCYTES ABSOLUTE AUTO 0.48 K/mm3 (0.16-1.47); MONOCYTES PERCENT AUTO 6 % (4-13); Mean Corpuscular HGB 28.1 pg (26.0-34.0); Mean Corpuscular HGB Conc 32.9 g/dL (31.5-36.5); Mean Corpuscular Volume 85 fL (80-100); Mean Platelet Volume 10.3 fL (9.1-12.4); NEUTROPHILS ABSOLUTE AUTO 4.69 K/mm3 (1.96-9.15); NEUTROPHILS PERCENT AUTO 61 % (41-73); Platelet Count 186 K/mm3 (150-400); RDW Coefficient Variation 14.4 % (11.7-14.2); RDW Standard Deviation 44.6 fL (35.1-46.3); Red Blood Cell Count 4.66 M/mm3 (4.30-5.90); White Blood Cell Count 7.71 K/mm3 (4.00-11.30)
--- NOTE | 2020-12-14 06:12 | NUR ---
SHIFT SUMMARY PATIENT ALERT AND ORIENTED. NO COMPLAINTS OF PAIN OR SHORTNESS OF BREATH. NO ACUTE ISSUES NOTED OVERNIGHT. CALL LIGHT WITHIN REACH. REPORT GIVEN TO ONCOMING RN.
[2020-12-14 06:41] LABS: Bun/Creatinine Ratio 22.6 (12.0-20.0); Calcium, Blood 8.3 mg/dL (8.5-10.1); Creatinine, Blood 1.59 mg/dL (0.60-1.20); Potassium, Blood 4.7 mmol/L (3.5-5.5)
--- NOTE | 2020-12-14 13:59 | NUR ---
UPDATE 12/14/[address] BLANTON, PT. WILL BE RECEIVING IV DIURETICS X 2 ADDITIONAL DAYS. CONTACTED PATIENT'S SON ALANA AND PROVIDED UPDATE. ALANA DENIED ANY ADDITIONAL NEEDS AT THIS TIME TO HELP IN PREPARING FOR PT. TO RETURN HOME. ANTICIPATED NEEDS AT TIME OF DISCHARGE TO INCLUDE: HH ([facility]), HOSPITAL F/U APPT. WITHIN 5-7 DAYS, AND CCM TO FOLLOW PATIENT'S CARE AND BEGIN SEEING PATIENT MONTHLY IF HH IS DISCONTINUED AT ANY TIME.
--- NOTE | 2020-12-14 18:18 | NUR ---
PT A/O X4, UP IN CHAIR MOST OF SHIFT, DR BERNICE CARDONA, F.R. CHANGED THIS AFTERNOON FROM 2000ML TO 1000ML. NO ACUTE CHANGES NOTED THIS SHIFT, WILL CONTINUE TO MONITOR AND REPORT TO ONCOMING RN
--- NOTE | 2020-12-15 06:53 | NUR ---
SHIFT SUMMARY PATIENT ALERT AND ORIENTED. HAD NO COMPLAINTS OF PAIN OR SHORTNESS OF BREATH. NO ACUTE ISSUES NOTED OVERNIGHT. DR QUEEN ORDERED FOR PTS BUMEX TO BE INCREASED TO 4 MG IV BID. CALL LIGHT WITHIN REACH. REPORT GIVEN TO ONCOMING RN.
[2020-12-15 08:55] LABS: Albumin, Blood 3.3 g/dL (3.4-5.0); Anion Gap 3 mmol/L (6-16); Blood Urea Nitrogen 47 mg/dL (8-24); Bun/Creatinine Ratio 24.4 (12.0-20.0); CO2, Blood 34 mmol/L (21-32); Calcium, Blood 8.5 mg/dL (8.5-10.1); Chloride, Blood 96 mmol/L (98-108); Creatinine, Blood 1.93 mg/dL (0.60-1.20); Glomerular Filtration Rate 34 (60-); Glucose, Blood 190 mg/dL (70-99); Magnesium, Blood 2.3 mg/dL (1.6-2.4); Phosphorus, Blood 4.5 mg/dL (2.5-4.9); Potassium, Blood 4.4 mmol/L (3.5-5.5); Sodium, Blood 133 mmol/L (136-145)
--- NOTE | 2020-12-15 16:08 | NUR ---
SHIFT SUMMARY PATIENT DENIES PAIN, NAUSEA, AND SHORTNESS OF BREATH. PATIENT WAS HYPOTENSIVE AT 97/52. THIS MORNING, CARDIAC MEDICATIONS HELD AND DR. BASSETT INFORMED. BLOOD PRESSURE CAME UP TO 104/52 AND BUMEX WAS GIVEN, BUT HELD THE REST OF PATIENT CARDIAC MEDICATIONS, PER DR. BASSETT. BEFORE LUNCH, PATIENT GLUCOSE WAS 363. DR. BASSETT NOTIFIED. ONE TIME DOSE OF 20 UNITS OF LANTUS GIVEN, PLUS HUMALOG FOR COVERAGE, PER DR. BASSETT ORDERS. PATIENT EATING AND DRINKING WELL. PATIENT MAINTAINING 1000ML FLUID RESTRICTION. PATIENT HAS BEEN SLEEPING A LOT OF SHIFT. PATIENT IS INDEPENDENT IN ROOM. PATIENT IS PLEASANT AND COOPERATIVE WITH CARE.
[2020-12-16 00:25] LABS: Protein, Urine Quantitative 51.8 mg/dL (0.0-11.9)
--- NOTE | 2020-12-16 05:18 | NUR ---
STOCK SORTER SUMMARY PT A/O X4 WITH [place], SLEPT WELL TONIGHT. RM AIR, DENIES SOB. AMBULATES WITH SBA TO BATHROOM. 3+ EDEMA IN BLE. BLE ELEVATED ON PILLOW. TELE BEEN SR IN THE 80'S PER PATIENT INTAKE REPRESENTATIVE. VSS, NO ACUTE CHANGES, CALL LIGHT WITHN REACH, WILL CONTINUE TO MONITOR.
[2020-12-16 08:06] LABS: Albumin, Blood 3.5 g/dL (3.4-5.0); Anion Gap 6 mmol/L (6-16); Blood Urea Nitrogen 56 mg/dL (8-24); Bun/Creatinine Ratio 26.9 (12.0-20.0); CO2, Blood 34 mmol/L (21-32); Chloride, Blood 94 mmol/L (98-108); Creatinine, Blood 2.08 mg/dL (0.60-1.20); Glomerular Filtration Rate 31 (60-); Glucose, Blood 235 mg/dL (70-99); Magnesium, Blood 2.4 mg/dL (1.6-2.4); Phosphorus, Blood 4.2 mg/dL (2.5-4.9); Potassium, Blood 4.1 mmol/L (3.5-5.5); Sodium, Blood 134 mmol/L (136-145)
--- NOTE | 2020-12-16 14:16 | NUR ---
Update 12/16/20: Per chart review with Dr. Grullon, pt. appropriate for discharge today. Pt. is scheduled for a hospital F/U 12/23/20 at 12pm. Per patient's son Jackson, they have everything needed at home. Only concern has been family has been ill with COVID. Patients has daughter living with him who is currently his main caregiver. Caregiver packet will be provided to pt. and family. Update 12/15/20: Per chart review with Dr. Grullon, pt. likely to discharge within the next 24-48 hours.
[2020-12-16] MEDS ORDERED: LISI5 PO (16:02)
[2020-12-16] MEDS ORDERED: INSULANPEN SC (16:04)
[2020-12-16] MEDS ORDERED: BUME2 (16:21)
[2020-12-16] MEDS ORDERED: METO25ER PO (16:22)
[2020-12-16] MEDS ORDERED: ALDACTONE25 MG PO (16:23)
--- NOTE | 2020-12-16 18:00 | NUR ---
DISCHARGE PATIENT TRANSPORTED VIA WHEELCHAIR TO PRIVATE VEHICLE. EDUCATED PATIENT WITH DISCHARGE INSTRUCTIONS. PATIENT STATED UNDERSTANDING. DISCHARGE PACKET SENT WITH PATIENT. BELONGINGS SENT WITH PATIENT. IV REMOVED WITHOUT DIFFICULTY. TELE REMOVED WITHOUT DIFFICULTY. [facility] SCHEDULED FOLLOW UP APPOINTMENT. MEDICATIONS FAXED TO PREFERRED PHARMACY.
== END 2020-12-16 17:57 | disposition home or self-care (01) | DRG 291 ==
LOC: ER 12:44 → MEDS 12:45 → ENPENDDIS 12-13 15:45 → MEDS 12-16 17:57
PROVIDERS: Family Medicine; Internal Medicine Cardiovascular Disease; Internal Medicine Nephrology; Physician Assistant; ADMIT Internal Medicine
DX: I13.0 Hypertensive heart and chronic kidney disease with heart failure and stage 1 through stage 4 chronic kidney disease, or unspecified chronic kidney disease (principal); I50.33 Acute on chronic diastolic (congestive) heart failure; N25.81 Secondary hyperparathyroidism of renal origin; N17.9 Acute kidney failure, unspecified; N04.8 Nephrotic syndrome with other morphologic changes; I47.1 Supraventricular tachycardia; E87.1 Hypo-osmolality and hyponatremia; Z20.822 Contact with and (suspected) exposure to COVID-19; I25.10 Atherosclerotic heart disease of native coronary artery without angina pectoris; I48.91 Unspecified atrial fibrillation; N18.30 Chronic kidney disease, stage 3 unspecified; R94.31 Abnormal electrocardiogram [ECG] [EKG]; I42.0 Dilated cardiomyopathy; E66.09 Other obesity due to excess calories; E78.5 Hyperlipidemia, unspecified; E11.65 Type 2 diabetes mellitus with hyperglycemia; E11.22 Type 2 diabetes mellitus with diabetic chronic kidney disease; E88.09 Other disorders of plasma-protein metabolism, not elsewhere classified; R22.1 Localized swelling, mass and lump, neck; D63.1 Anemia in chronic kidney disease; Z88.2 Allergy status to sulfonamides; Z88.1 Allergy status to other antibiotic agents; Z90.89 Acquired absence of other organs; Z95.1 Presence of aortocoronary bypass graft; Z87.891 Personal history of nicotine dependence; Z79.4 Long term (current) use of insulin; Z79.82 Long term (current) use of aspirin; Z79.899 Other long term (current) drug therapy; Z68.36 Body mass index [BMI] 36.0-36.9, adult
CPT/HCPCS: 36415; 70491; 71045; 80048; 80053; 80069; 81001; 81050; 82947; 83735; 83880; 84156; 84443; 84484; 85018; 85025; 93005; 93010; 96372; 96374; 96376; 99285-25; A9270; G0378; J1650; J1940; J7040; P9041; Q9967; U0004

== ENCOUNTER → 2020-12-29 | Outpatient (CLI) | payer MEDICARE ==
[~2020-12-29] MED LIST changes: +ALDACTONE25 MG PO; +BUME2; +LISI5 PO; +METO25ER PO; +ZESTRIL40 M1 PO
== END | disposition home or self-care (01) ==
LOC: LAB 13:25 → LAB SHORT 13:25
DX: R22.1 Localized swelling, mass and lump, neck (principal)
CPT/HCPCS: 87070; 87075; 87205

== ENCOUNTER 2021-01-27 15:07 | Emergency (ER) | payer MEDICARE ==
[~2021-01-27] VITALS: Ht 177.8 cm; Wt 104.3 kg
[2021-01-27 15:46] LABS: BASOPHILS PERCENT AUTO 0 % (0-2); EOSINOPHILS PERCENT AUTO 0 % (0-6); Hematocrit 34.2 % (37.0-53.0); Hemoglobin 11.7 g/dL (13.5-17.5); IMMATURE GRAN ABSOLUTE AUTO 0.06 K/mm3 (0.00-0.10); IMMATURE GRAN PERCENT AUTO 1 % (0-1); LYMPHOCYTES ABSOLUTE AUTO 0.69 K/mm3 (0.84-5.20); LYMPHOCYTES PERCENT AUTO 6 % (21-46); MONOCYTES ABSOLUTE AUTO 0.41 K/mm3 (0.16-1.47); MONOCYTES PERCENT AUTO 4 % (4-13); Mean Corpuscular HGB Conc 34.2 g/dL (31.5-36.5); Mean Corpuscular Volume 85 fL (80-100); Mean Platelet Volume 10.4 fL (9.1-12.4); NEUTROPHILS ABSOLUTE AUTO 10.45 K/mm3 (1.96-9.15); NEUTROPHILS PERCENT AUTO 90 % (41-73); Platelet Count 212 K/mm3 (150-400); RDW Coefficient Variation 14.1 % (11.7-14.2); RDW Standard Deviation 43.5 fL (35.1-46.3); Red Blood Cell Count 4.04 M/mm3 (4.30-5.90); White Blood Cell Count 11.61 K/mm3 (4.00-11.30)
[2021-01-27 16:56] LABS: Beta-hydroxybutyrate 3.1 mg/dL (0.2-2.8)
[2021-01-27 17:02] LABS: Albumin, Blood 3.2 g/dL (3.4-5.0); Albumin/Globulin Ratio 0.8 (0.8-1.8); Bilirubin, Total 0.6 mg/dL (0.1-1.0); Bun/Creatinine Ratio 33.3 (12.0-20.0); Creatinine, Blood 2.07 mg/dL (0.60-1.20); Globulin, Blood 4.2 g/dL (2.2-4.0); Total Protein, Blood 7.4 g/dL (6.4-8.2)
[2021-01-27] MEDS ORDERED: METPRE4DP (17:08)
[2021-01-27] MEDS ORDERED: AZITHROMYCIN (17:08)
== END 2021-01-27 21:28 | disposition home or self-care (01) ==
LOC: ER 15:07
PROVIDERS: Physician Assistant
DX: U07.1 COVID-19 (principal); E11.65 Type 2 diabetes mellitus with hyperglycemia; I10 Essential (primary) hypertension; E78.5 Hyperlipidemia, unspecified; Z88.2 Allergy status to sulfonamides; Z88.0 Allergy status to penicillin; Z88.1 Allergy status to other antibiotic agents; Z79.899 Other long term (current) drug therapy; Z79.82 Long term (current) use of aspirin; Z79.4 Long term (current) use of insulin
CPT/HCPCS: 36415; 71045; 80053; 82010; 82947; 85025; 93005; 93010; 99284-25; J1815; J7030; M0243; Q0243

== ENCOUNTER → 2021-01-29 | Outpatient (CLI) | payer MEDICARE ==
[~2021-01-29] MED LIST changes: +AZITHROMYCIN; +METPRE4DP
[2021-01-31 14:58] LABS: Creatinine Urine 58.6 mg/dL (27.00-270.00); Protein, Urine Quantitative 48.8 mg/dL (0.0-11.9)
== END | disposition home or self-care (01) ==
LOC: LAB EV 07:50 → LAB SHORT 07:50
PROVIDERS: Internal Medicine Nephrology
DX: N18.30 Chronic kidney disease, stage 3 unspecified (principal); D63.1 Anemia in chronic kidney disease; N25.81 Secondary hyperparathyroidism of renal origin; E55.9 Vitamin D deficiency, unspecified; E78.00 Pure hypercholesterolemia, unspecified; R76.9 Abnormal immunological finding in serum, unspecified; R94.5 Abnormal results of liver function studies; R94.6 Abnormal results of thyroid function studies
CPT/HCPCS: 81050; 82043; 82570; 84156

== ENCOUNTER 2021-08-21 15:41 | Emergency (ER) | payer MEDICARE ==
[~2021-08-21] VITALS: Ht 177.8 cm; Wt 115.7 kg
[2021-08-21 16:04] LABS: BASOPHILS ABSOLUTE AUTO 0.03 K/mm3 (0.00-0.23); BASOPHILS PERCENT AUTO 0 % (0-2); EOSINOPHILS ABSOLUTE AUTO 0.19 K/mm3 (0.00-0.68); EOSINOPHILS PERCENT AUTO 2 % (0-6); Hematocrit 38.6 % (37.0-53.0); Hemoglobin 13.3 g/dL (13.5-17.5); IMMATURE GRAN ABSOLUTE AUTO 0.02 K/mm3 (0.00-0.10); IMMATURE GRAN PERCENT AUTO 0 % (0-1); LYMPHOCYTES ABSOLUTE AUTO 0.99 K/mm3 (0.84-5.20); LYMPHOCYTES PERCENT AUTO 10 % (21-46); MONOCYTES ABSOLUTE AUTO 0.41 K/mm3 (0.16-1.47); MONOCYTES PERCENT AUTO 4 % (4-13); Mean Corpuscular HGB Conc 34.5 g/dL (31.5-36.5); Mean Corpuscular Volume 87 fL (80-100); Mean Platelet Volume 10.6 fL (9.1-12.4); NEUTROPHILS ABSOLUTE AUTO 8.27 K/mm3 (1.96-9.15); NEUTROPHILS PERCENT AUTO 84 % (41-73); Platelet Count 234 K/mm3 (150-400); RDW Coefficient Variation 12.7 % (11.7-14.2); RDW Standard Deviation 40.6 fL (35.1-46.3); Red Blood Cell Count 4.44 M/mm3 (4.30-5.90); White Blood Cell Count 9.91 K/mm3 (4.00-11.30)
[2021-08-21 16:42] LABS: Albumin, Blood 3.6 g/dL (3.4-5.0); Bilirubin, Total 0.7 mg/dL (0.1-1.0); Bun/Creatinine Ratio 31.2 (12.0-20.0); Calcium, Blood 8.9 mg/dL (8.5-10.1); Creatinine, Blood 2.47 mg/dL (0.60-1.20); Globulin, Blood 3.7 g/dL (2.2-4.0); Potassium, Blood 4.9 mmol/L (3.5-5.5); Total Protein, Blood 7.3 g/dL (6.4-8.2)
== END 2021-08-21 19:19 | disposition home or self-care (01) ==
LOC: ER 15:41
PROVIDERS: Physician Assistant
DX: E86.0 Dehydration (principal); I95.9 Hypotension, unspecified; E11.9 Type 2 diabetes mellitus without complications; I25.10 Atherosclerotic heart disease of native coronary artery without angina pectoris; I11.0 Hypertensive heart disease with heart failure; I50.9 Heart failure, unspecified; Z88.0 Allergy status to penicillin; Z88.1 Allergy status to other antibiotic agents; Z88.2 Allergy status to sulfonamides; Z79.4 Long term (current) use of insulin; Z79.82 Long term (current) use of aspirin; Z79.899 Other long term (current) drug therapy; Z87.891 Personal history of nicotine dependence
CPT/HCPCS: 36415; 71045; 80053; 83690; 83880; 84484; 85025; 93005; 93010; J7030

== ENCOUNTER → 2021-12-11 | Outpatient (CLI) | payer MEDICARE ==
[2021-12-11 16:52] LABS: BASOPHILS ABSOLUTE AUTO 0.04 K/mm3 (0.00-0.23); BASOPHILS PERCENT AUTO 0 % (0-2); EOSINOPHILS ABSOLUTE AUTO 0.17 K/mm3 (0.00-0.68); EOSINOPHILS PERCENT AUTO 1 % (0-6); Hematocrit 35.5 % (37.0-53.0); Hemoglobin 12.1 g/dL (13.5-17.5); IMMATURE GRAN ABSOLUTE AUTO 0.07 K/mm3 (0.00-0.10); IMMATURE GRAN PERCENT AUTO 0 % (0-1); LYMPHOCYTES ABSOLUTE AUTO 1.05 K/mm3 (0.84-5.20); LYMPHOCYTES PERCENT AUTO 7 % (21-46); MONOCYTES PERCENT AUTO 6 % (4-13); Mean Corpuscular HGB 29.8 pg (26.0-34.0); Mean Corpuscular HGB Conc 34.1 g/dL (31.5-36.5); Mean Corpuscular Volume 87 fL (80-100); Mean Platelet Volume 10.6 fL (9.1-12.4); NEUTROPHILS ABSOLUTE AUTO 13.65 K/mm3 (1.96-9.15); NEUTROPHILS PERCENT AUTO 86 % (41-73); Platelet Count 213 K/mm3 (150-400); RDW Coefficient Variation 12.8 % (11.7-14.2); RDW Standard Deviation 40.6 fL (35.1-46.3); Red Blood Cell Count 4.06 M/mm3 (4.30-5.90); White Blood Cell Count 15.88 K/mm3 (4.00-11.30)
[2021-12-11 17:11] LABS: Albumin, Blood 3.4 g/dL (3.4-5.0); Bilirubin, Total 0.7 mg/dL (0.1-1.0); Calcium, Blood 8.8 mg/dL (8.5-10.1); Creatinine, Blood 2.3 mg/dL (0.60-1.20); Free Thyroxine 1.16 ng/dL (0.70-1.60); Globulin, Blood 3.3 g/dL (2.2-4.0); Potassium, Blood 4.9 mmol/L (3.5-5.5); Thyroid Stimulating Hormone 1.276 uIU/mL (0.360-4.800); Total Protein, Blood 6.7 g/dL (6.4-8.2)
== END | disposition home or self-care (01) ==
LOC: LAB 16:35 → LAB SHORT 16:35
PROVIDERS: General Practice
DX: R06.00 Dyspnea, unspecified (principal); R53.81 Other malaise
CPT/HCPCS: 80053; 82550; 83880; 84439; 84443; 84484; 85025

== ENCOUNTER → 2021-12-14 | Outpatient (CLI) | payer MEDICARE ==
[2021-12-14 09:04] LABS: BASOPHILS ABSOLUTE AUTO 0.04 K/mm3 (0.00-0.23); BASOPHILS PERCENT AUTO 0 % (0-2); EOSINOPHILS ABSOLUTE AUTO 0.32 K/mm3 (0.00-0.68); EOSINOPHILS PERCENT AUTO 3 % (0-6); Hematocrit 33.3 % (37.0-53.0); Hemoglobin 11.5 g/dL (13.5-17.5); IMMATURE GRAN ABSOLUTE AUTO 0.07 K/mm3 (0.00-0.10); IMMATURE GRAN PERCENT AUTO 1 % (0-1); LYMPHOCYTES ABSOLUTE AUTO 1.46 K/mm3 (0.84-5.20); LYMPHOCYTES PERCENT AUTO 13 % (21-46); MONOCYTES ABSOLUTE AUTO 0.61 K/mm3 (0.16-1.47); MONOCYTES PERCENT AUTO 6 % (4-13); Mean Corpuscular HGB 29.6 pg (26.0-34.0); Mean Corpuscular HGB Conc 34.5 g/dL (31.5-36.5); Mean Corpuscular Volume 86 fL (80-100); Mean Platelet Volume 10.3 fL (9.1-12.4); NEUTROPHILS ABSOLUTE AUTO 8.37 K/mm3 (1.96-9.15); NEUTROPHILS PERCENT AUTO 77 % (41-73); Platelet Count 240 K/mm3 (150-400); RDW Coefficient Variation 12.6 % (11.7-14.2); RDW Standard Deviation 38.8 fL (35.1-46.3); Red Blood Cell Count 3.89 M/mm3 (4.30-5.90); White Blood Cell Count 10.87 K/mm3 (4.00-11.30)
[2021-12-14 09:16] LABS: Albumin/Globulin Ratio 0.7 (0.8-1.8); Bilirubin, Total 0.4 mg/dL (0.1-1.0); Creatinine, Blood 2.48 mg/dL (0.60-1.20); Globulin, Blood 4.3 g/dL (2.2-4.0); Total Protein, Blood 7.3 g/dL (6.4-8.2)
== END | disposition home or self-care (01) ==
LOC: LAB 08:58 → LAB SHORT 08:58
PROVIDERS: Physician Assistant
DX: J18.9 Pneumonia, unspecified organism (principal)
CPT/HCPCS: 80053; 83880; 85025

== ENCOUNTER 2023-04-03 18:01 | Emergency (ER) | payer MEDICARE ==
[~2023-04-03] VITALS: Ht 172.7 cm; Wt 120.2 kg
[2023-04-03 18:16] VITALS: BP 134/113
[2023-04-03 18:44] LABS: BASOPHILS ABSOLUTE AUTO 0.04 K/mm3 (0.00-0.23); BASOPHILS PERCENT AUTO 1 % (0-2); EOSINOPHILS PERCENT AUTO 2 % (0-6); Hematocrit 40.2 % (37.0-53.0); Hemoglobin 13.4 g/dL (13.5-17.5); IMMATURE GRAN ABSOLUTE AUTO 0.02 K/mm3 (0.00-0.10); IMMATURE GRAN PERCENT AUTO 0 % (0-1); LYMPHOCYTES ABSOLUTE AUTO 1.11 K/mm3 (0.84-5.20); LYMPHOCYTES PERCENT AUTO 13 % (21-46); MONOCYTES ABSOLUTE AUTO 0.49 K/mm3 (0.16-1.47); MONOCYTES PERCENT AUTO 6 % (4-13); Mean Corpuscular HGB 28.3 pg (26.0-34.0); Mean Corpuscular HGB Conc 33.3 g/dL (31.5-36.5); Mean Corpuscular Volume 85 fL (80-100); NEUTROPHILS PERCENT AUTO 78 % (41-73); Platelet Count 217 K/mm3 (150-400); Red Blood Cell Count 4.73 M/mm3 (4.30-5.90); White Blood Cell Count 8.36 K/mm3 (4.00-11.30)
[2023-04-03 19:07] LABS: Albumin/Globulin Ratio 0.8 (0.8-1.8); Bun/Creatinine Ratio 19.7 (12.0-20.0); Calcium, Blood 8.4 mg/dL (8.5-10.1); Creatinine, Blood 1.73 mg/dL (0.60-1.20); Globulin, Blood 3.7 g/dL (2.2-4.0); Potassium, Blood 4.1 mmol/L (3.5-5.5); Total Protein, Blood 6.7 g/dL (6.4-8.2)
[2023-04-03 19:18] LABS: Influenza A, PCR NEGATIVE (NEGATIVE); Influenza B, PCR NEGATIVE (NEGATIVE); Resp Syncytial Virus, PCR NEGATIVE (NEGATIVE); SARS-Cov-2 (COVID-19) PCR, MMC NEGATIVE (NEGATIVE)
== END 2023-04-03 22:30 | disposition home or self-care (01) ==
LOC: ER 18:01
PROVIDERS: Student in an Organized Health Care Education/Training Program
DX: I50.9 Heart failure, unspecified (principal); Z79.82 Long term (current) use of aspirin; Z79.899 Other long term (current) drug therapy; Z87.891 Personal history of nicotine dependence
CPT/HCPCS: 0241U; 71046; 80053; 83880; 84484; 85025; 93005; 93010; 99285-25

== ENCOUNTER 2023-04-11 15:12 | Inpatient (IN) | payer MEDICARE ==
[~2023-04-11] VITALS: Ht 175.3 cm; Wt 125.4 kg
[2023-04-11 15:47] LABS: BASOPHILS ABSOLUTE AUTO 0.03 K/mm3 (0.00-0.23); BASOPHILS PERCENT AUTO 0 % (0-2); EOSINOPHILS ABSOLUTE AUTO 0.15 K/mm3 (0.00-0.68); EOSINOPHILS PERCENT AUTO 2 % (0-6); Hematocrit 40.6 % (37.0-53.0); Hemoglobin 13.4 g/dL (13.5-17.5); IMMATURE GRAN ABSOLUTE AUTO 0.03 K/mm3 (0.00-0.10); IMMATURE GRAN PERCENT AUTO 0 % (0-1); LYMPHOCYTES ABSOLUTE AUTO 0.95 K/mm3 (0.84-5.20); LYMPHOCYTES PERCENT AUTO 11 % (21-46); MONOCYTES ABSOLUTE AUTO 0.42 K/mm3 (0.16-1.47); MONOCYTES PERCENT AUTO 5 % (4-13); Mean Corpuscular HGB 27.7 pg (26.0-34.0); Mean Corpuscular Volume 84 fL (80-100); Mean Platelet Volume 9.9 fL (9.1-12.4); NEUTROPHILS ABSOLUTE AUTO 7.28 K/mm3 (1.96-9.15); NEUTROPHILS PERCENT AUTO 82 % (41-73); Platelet Count 206 K/mm3 (150-400); RDW Coefficient Variation 13.1 % (11.7-14.2); RDW Standard Deviation 40.2 fL (35.1-46.3); Red Blood Cell Count 4.84 M/mm3 (4.30-5.90); White Blood Cell Count 8.86 K/mm3 (4.00-11.30)
[2023-04-11 16:19] LABS: Albumin, Blood 3.1 g/dL (3.4-5.0); Albumin/Globulin Ratio 0.8 (0.8-1.8); Bilirubin, Total 0.8 mg/dL (0.1-1.0); Bun/Creatinine Ratio 19.7 (12.0-20.0); Calcium, Blood 8.1 mg/dL (8.5-10.1); Creatinine, Blood 1.88 mg/dL (0.60-1.20); Globulin, Blood 3.8 g/dL (2.2-4.0); Potassium, Blood 3.5 mmol/L (3.5-5.5); Total Protein, Blood 6.9 g/dL (6.4-8.2)
[2023-04-11] MEDS ORDERED: LASIX20 M2 PO (18:17)
[2023-04-11] MEDS ORDERED: TORSE20 PO (19:54)
[2023-04-11] MEDS ORDERED: Imdur-ER60 MG PO (19:55)
[2023-04-11] MEDS ORDERED: HUMALOG KW100 UNIT/1 SC (21:20)
[2023-04-11 21:29] VITALS: BP 145/91
[2023-04-12 03:12] VITALS: BP 149/114
[2023-04-12 03:33] LABS: Bun/Creatinine Ratio 20.7 (12.0-20.0); Calcium, Blood 8.2 mg/dL (8.5-10.1); Creatinine, Blood 1.84 mg/dL (0.60-1.20); Potassium, Blood 3.3 mmol/L (3.5-5.5)
--- NOTE | 2023-04-12 04:39 | NUR ---
SHIFT SUMMARY: PATIENT A/OX4, ANSWER TO QUESTIONS APPROPRIATELY AND ABLE TO MAKE NEEDS KNOWN. PATIENT ADMITTED FOR DX'S OF ACUTE DIASTOLIC HF. EDEMA BUE'S, ABDOMEN, AND BLE'S/FEET. SCD'S IN PLACED TO BLE'S AND ELEVATED ON PILLOWS. PATIENT DENIES CP/PRESSURE, N/V AND DIZZINESS. VISIBLE TREMORS TO BUE'S, PER PATIENT "IT'S NOT NEW AND HAS BEEN FOR A WHILE." PATIENT ON TELE, AFIB HR IN THE 90'S-110'S BPM. PATIENT REPORTS SOB c ACTIVITIES, HOB ELEVATED. PATIENT ON 2L OF O2 VIA NC c SPO2 IN THE HIGH 90'S. PATIENT WEAR CPAP AT HS. PATIENT REPORTS HE HAS NOT BEEN WEARING CPAP AT HOME D/T INCREASE SOB AND NOT ABLE TO TOLERATE. PATIENT PLACED ON CPAP LAST NIGHT, BUT WAS NOT ABLE TO TOLERATE AND ONLY LAST FOR ABOUT 5 MINS. PATIENT IS CONTINENCE OF BLADDER, AMBULATES TO BATHROOM c 1 ASSIST AND DECLINED TO USED FWW. PATIENT REPORTS DOES NOT USES ANY ASSISTIVE DEVICES c AMBULATION AT HOME . AT AROUND 0505, RECEIVED A CALL FROM [place], PATIENT HAD A 4 BEATS RUN OF VTA. THIS RN ASSESS PATIENT, DENIES CP/PRESSURE OR TIGHTNESS, VITAL SIGNS TAKEN; BP 130/96 c HR OF 111 BPM. NOTIFIED CHARGED RN, TRISTON. PER TRISTON "JUST CONINUE TO MONITOR THE PATIENT." PATIENT RECEIVED SCHEDULED MEDS PER EMAR. VITAL SIGNS REVIEWED. PIV TO RAC SALINE LOCKED. BED ALARM ON FOR SAFETY. CALL LIGHT IN RAECH.
[2023-04-12 05:10] VITALS: BP 130/96
[2023-04-12 07:21] VITALS: BP 135/82
--- NOTE | 2023-04-12 09:32 | NUR ---
Pt frantically needing to go into the bathroom, refusing to use urinal, states it doesn't work for him, a/ox4, [place], tends to be focused on one thing at a time and unable to process what is being said until he finishes what ever he's doing, cooperative with care, follows commands well, denies pain at this time, lungs are clear in upper nowak, dim in bases, resp even adn unlaobred, no cough noted, did require 2 liters 02 at hs while asleep, hrr, 3-4+ edema noted to b/l le, cap refill< 3 sec, vs stable, afebrile, piv to rac site is clear and patent, btx4, abd round soft nontender, voids without diff, skin c/w/d, maew, is a bit wobbly when ambulating, sba, kalli, call light in reach.
--- NOTE | 2023-04-12 12:26 | NUR ---
pt sitting up in chair watching tv, he states he's doing ok, compliance monitor called and said he is having freq pvc's, left msg for Dr. Cee. call light in reach.
[2023-04-12 14:17] LABS: Magnesium, Blood 2.3 mg/dL (1.6-2.4); Phosphorus, Blood 3.6 mg/dL (2.5-4.9); Potassium, Blood 3.8 mmol/L (3.5-5.5)
[2023-04-12 16:14] VITALS: BP 149/86
--- NOTE | 2023-04-12 18:07 | NUR ---
pt up to chair most of the day, gets himself up to the bathroom, needs one person assist, pt/ot did work with him and ambulated him out in the [place], cardiology consult was called in and he was seen, will likely order a stress test. no further changes, call light in reach.
[2023-04-12 19:32] VITALS: BP 147/93
[2023-04-13 03:58] VITALS: BP 113/99
[2023-04-13 05:58] LABS: Albumin, Blood 2.9 g/dL (3.4-5.0); Anion Gap 4 mmol/L (6-16); Blood Urea Nitrogen 43 mg/dL (8-24); Bun/Creatinine Ratio 21.4 (12.0-20.0); CO2, Blood 30 mmol/L (21-32); Calcium, Blood 8.4 mg/dL (8.5-10.1); Chloride, Blood 105 mmol/L (98-108); Creatinine, Blood 2.01 mg/dL (0.60-1.20); Glomerular Filtration Rate 33 (60-); Glucose, Blood 180 mg/dL (70-99); Magnesium, Blood 2.3 mg/dL (1.6-2.4); Phosphorus, Blood 3.6 mg/dL (2.5-4.9); Potassium, Blood 3.7 mmol/L (3.5-5.5); Sodium, Blood 139 mmol/L (136-145)
--- NOTE | 2023-04-13 06:48 | NUR ---
Rn shift summary: Patient is alert and oriented. Pt is very friendly and talkative. Patient is on tele Afib with PVC's rate 100. Pt is up in the chair most of night. Lower extremities are 3-4+ pitting edema. He has scratches to his left leg below knee and outer calf from scratching. Pt did try resting in bed but was restless, in and out of bed and chair per FLIGHT RESERVATIONS MANAGER. Pt has been on Fluid restriction and is tolerant of restriction. Medicated x1 with tylenol for generalized discomfort. Lungs with crackles brayan bases. O2 3 liters sats are in upper 90's.
[2023-04-13 07:39] VITALS: BP 138/80
--- NOTE | 2023-04-13 09:00 | NUR ---
pt sitting up on the side of the bed, a/ox3, [place], pleasant and cooperative with care, follows commands well, denies pain at this time, lungs are clear in upper nowak, fine crackles noted to bases, resp even and unlabored, at rest, no cough noted, on 2 liters for comfort, using cpap at hs, while asleep, hrr, tele in place, running afib with freq pvc's, 4+ edema noted to b/l le, same as yesterday, piv to rac site is clear and patent, btx4, abd round soft nontender, void via bathroom, skin has multiple bruising and scratches to b/l le, jong, unsteady on feet, is one person assist, kalli, call light in reach.
--- NOTE | 2023-04-13 14:08 | NUR ---
pt sitting up in chair, family in to visit, no acute changes, will likely have stress test tomorrow. call light in reach.
[2023-04-13 15:50] VITALS: BP 134/90
--- NOTE | 2023-04-13 18:40 | NUR ---
PATIENT IS ALERT AND ORIENTED AND COOPERATIVE WITH CARE. PLAN IS FOR A STRESS TEST TOMORROW MORNING. THE PATIENT'S CPAP IS AT THE BEDSIDE, NEEDS TO BE SET UP BY RT. FLUID RESTRICTION OF 1,500 ML. SBA WITH FWW, PATIENT NEEDS ASSISTANCE WITH VOIDING. HE IS DIURESIS AND MAKES A MESS INFRONT OF THE TOILET. 2L O2 VIA NC. WILL CONTINUE TO MONITOR
[2023-04-13 19:21] VITALS: BP 113/67
[2023-04-14] VITALS (7 sets, daily range): BP systolic 96–145; BP diastolic 76–111
--- NOTE | 2023-04-14 05:54 | NUR ---
SHIFT SUMMARY NOC PT A/O X 4. PLEASANT AND COOPERATIVE WITH CARE. PT HAS 4+ BLE EDEMA AND IS BEING DIURESED. PT ON 2L/NC MAINTAINING SPO2 > 92% BEING MONITORED VIA BIOX. ON TELE RUNNING AFIB/BBB IN 90'S. PT HS CBG 249 SCHEDULED 50 UNITS LONG ACTING INSULIN GIVEN. RT SETUP PT HOME CPAP, PT SLEPT IN LOUNGER CHAIR ALL NIGHT. PT NPO AFTER MIDNIGHT IN ANTICIPATION OF POSSIBLE STRESS TEST TODAY, NO ORDER IN SYSTEM OF YET. PT IS CURRENTLY RESTING WITH BED IN LOWEST POSITION, AND CALL LIGHT WITHIN REACH.
[2023-04-14 07:03] LABS: Albumin, Blood 2.8 g/dL (3.4-5.0); Anion Gap 4 mmol/L (6-16); Blood Urea Nitrogen 48 mg/dL (8-24); Bun/Creatinine Ratio 24.1 (12.0-20.0); CO2, Blood 31 mmol/L (21-32); Calcium, Blood 8.6 mg/dL (8.5-10.1); Chloride, Blood 104 mmol/L (98-108); Creatinine, Blood 1.99 mg/dL (0.60-1.20); Glomerular Filtration Rate 33 (60-); Glucose, Blood 209 mg/dL (70-99); Phosphorus, Blood 3.4 mg/dL (2.5-4.9); Potassium, Blood 3.7 mmol/L (3.5-5.5); Sodium, Blood 139 mmol/L (136-145)
[2023-04-14 08:28] LABS: Hematocrit 41.5 % (37.0-53.0); Hemoglobin 13.4 g/dL (13.5-17.5); Mean Platelet Volume 9.9 fL (9.1-12.4); Platelet Count 188 K/mm3 (150-400)
[2023-04-14 09:06] LABS: International Normalized Ratio 1.06; Prothrombin Time Results 11.1 Sec (9.7-11.5)
--- NOTE | 2023-04-14 10:34 | NUR ---
CARE ASSUMPTION PT BROUGHT TO PCU-14 BY WHEELCHAIR FROM MEDICAL FLOOR @ APPROX 0915. PT A&O X4, ABLE TO STAND & WEAKLY AMBULATE FROM WHEELCHAIR TO PCU BED. MONITOR SHOWING AFLUTTER, HR 80s-110s. SPO2 100% ON 2L NC. PT DENIES USING NC AT HOME. NC REMOVED W/ PT SPO2 > 95% ON RA. PT REPORTS USING CPAP AT NIGHT. HOME CPAP W/ PT AT BEDSIDE. HEPARIN GTT & AMIO GTT INITIATED PER ORDERS. PT W/ DEEP BLE EDEMA. ANTI-EMBOLISM STOCKINGS APPLIED & BLE ELEVATED. PT W/ SCRATCHES NOTED SCATTERED T/O BLE. PT REPORTS "I HAVE PSORIASIS. I SCRATCH ALOT."
--- NOTE | 2023-04-14 11:14 | NUR ---
PHYSICIAN CONTACT DR CRANDALL ORDERED PATIENT TO BE TRANSFERED TO PCU THIS AM. TELE READING ACCORDING TO DOC IS A FLUTTER, PLACED ORDERS FOR DRIPS TO BE STARTED IN PCU. REPORT GIVEN TO PCU STAFF AND PATIENT TRANSFERRED VIA WHEELCHAIR. ALL BELONGINGS SENT WELL 2 INSULIN PENS. WILL CONTINUE TO MONITOR
--- NOTE | 2023-04-14 17:25 | NUR ---
END OF SHIFT PT CONTINUES TO BE A&O X4. VSS. SPO2 > 92% ON RA, WEARING 2L NC PRN NEEDED FOR FEELING SOB. MONITOR SHOWING AFLUTTER, HR 80s-110s. HEPARIN GTT & AMIO GTT INFUSING PER ORDERS. PT 1 PERSON ASSIST W/ FWW. PT UP IN CHAIR MAJORITY OF DAY.
[2023-04-15] VITALS (7 sets, daily range): BP systolic 124–141; BP diastolic 85–101
[2023-04-15 04:32] LABS: Hematocrit 42.7 % (37.0-53.0); Mean Platelet Volume 10.1 fL (9.1-12.4); Platelet Count 204 K/mm3 (150-400)
--- NOTE | 2023-04-15 05:16 | NUR ---
SHIFT SUMMARY PT A&O X4. MATCH-E-BE-NASH-SHE-WISH BAND. ABLE TO MAKE NEEDS KNOWN. REPORTED SOB DURING THIS SHIFT. STATED THAT "EVERYTHING HURT" BUT WAS UNABLE TO DESCRIBE THE PAIN AND ONLY STATED THAT HE WAS UNCOMFORTABLE D/T SOB. EASILY DYSPNEIC WITH EXERTION. 2L VIA NC PRN. PT APPEARED TO GET LITTLE TO NO SLEEP DURING THIS NOC SHIFT. RECLINER PLACED IN ROOM. PT REMAINED IN RECLINER T/O THIS SHIFT. THIS RN EDUCATED PT REGARDING FLUID RESTRICTION, CHF, AND EDEMA ON MULTIPLE OCCASIONS DURING THIS SHIFT. PT APPEARS TO HAVE MINIMAL UNDERSTANDING ABOUT CURRENT DISEASE PROCESS. PT EDUCATED ON ELEVATED BLE, CONTINUED TO DECLINE ELEVATION DESPITE EDUCATION. BP STABLE. AFLUTTER WITH HR 110'S DURING THIS SHIFT. AFEBRILE. AMIO GTT AND HEP GTT INFUSING PER EMAR. PT AMBULATING TO BATHROOM WITH 1P ASSIST WITH FWW. CALL LIGHT WITHIN REACH. THIS RN WILL REPORT TO ONCOMING DAYSHIFT RN.
--- NOTE | 2023-04-15 15:12 | NUR ---
PT BACK FROM IMAGING DEPARTMENT PER NUCULAR MEDICINE STAFF, PT UNABLE TO LAY FLAT ON TABLE D/T SOB. NOTIFIED. PT TO GO TO HEART ENTER FOR SECOND PORTION OF STRESS TEST TOMORROW AT 0830.
--- NOTE | 2023-04-15 18:34 | NUR ---
SHIFT SUMMARY PT AOX4 PLEASANT AND COOPERATIVE WITH CARE. VSS. RHYTH ATRIAL FLUTTER 110S. SPO2>92% ON RA, PT USING 2L O2 PRN FOR FEELING SOB. PT ATTEMPTED PART 1 OF 2 DAY STRESS TEST AND WAS UNABLE TO COMPLETE D/T FEELING SOB WHEN LAYED FLAT FOR IMAGING. PART 2 OF STRESS TEST TOMORROW AT 0830. PT AMIODERONE GTT COMPLETED AND PT TRANSITIONED TO PO PER PAPER STACKER ORDERS. NO ACUTE CHANGES.
[2023-04-16 00:46] VITALS: BP 128/103
[2023-04-16 02:34] LABS: Hematocrit 42.1 % (37.0-53.0); Hemoglobin 13.9 g/dL (13.5-17.5); Mean Platelet Volume 10.2 fL (9.1-12.4); Platelet Count 202 K/mm3 (150-400)
[2023-04-16 03:45] VITALS: BP 121/89
--- NOTE | 2023-04-16 06:33 | NUR ---
SHIFT SUMMARY PT ALERT AND ORIENTED X 4. PT APPEARS ANXIOUS T/O SHIFT. PT STATES HE DOES NOT "FEEL ANXIOUS BUT HAD DIFFICULTY BREATHING." MD NOTIFIED. CHEST X RAY COMPLETED. MD NOTIFIED NO OUTPUT DOCUMENTED FOR PT ON 04/15. PT HAVING UNMEASURED, INCONTINENT VOIDS AT TIMES T/O SHIFT. SEE EHR FOR DOCUMENTATION. PT ATTEMPTED TO USE CPAP BUT STATES "I FEEL LIKE IT MAKES IT HARDER TO BREATH." ATTEMPTED TO OFFER TO ASK MD FOR ANXIETY MEDS AND PT DECLINED. PT HAD DESAT OF O2 DOWN TO 70'S WHEN SLEEPING. MD AWARE. PT ABLE TO RECOVER ON OWN QUICKLY UP TO 98% SPO2 ON RA. PT WEARS 2L FOR WOB AT TIMES. PT SBA TO BATHROOM WITH WALKER. SEE EMAR FOR HEPARIN GTT DOSAGE. BP STABLE. HR STABLE. NO CP OR PRESSURE REPORTED. CALL LIGHT WITHIN REACH. WILL CONT TO MONITOR UNTIL REPORT GIVEN TO DAYSHIFT RN.
[2023-04-16 07:39] VITALS: BP 154/80
[2023-04-16 10:02] LABS: Anion Gap 7 mmol/L (6-16); Blood Urea Nitrogen 57 mg/dL (8-24); Bun/Creatinine Ratio 26.5 (12.0-20.0); CO2, Blood 26 mmol/L (21-32); Calcium, Blood 8.8 mg/dL (8.5-10.1); Chloride, Blood 104 mmol/L (98-108); Creatinine, Blood 2.15 mg/dL (0.60-1.20); Glomerular Filtration Rate 30 (60-); Glucose, Blood 74 mg/dL (70-99); Magnesium, Blood 2.4 mg/dL (1.6-2.4); Potassium, Blood 4.1 mmol/L (3.5-5.5); Sodium, Blood 137 mmol/L (136-145)
[2023-04-16 11:21] VITALS: BP 109/95
[2023-04-16 15:50] VITALS: BP 142/88
--- NOTE | 2023-04-16 18:35 | NUR ---
SHIFT SUMMARY: PT HAS BEEN A&Ox4, OCCASIONALLY HEARD MOANING OR SAYING "OH MY LORD". PT DENIES FEELING ANXIOUS, STATES "I JUST DON'T FEEL GOOD" OR C/O DIFFICULTY BREATHING. INITIAL BLOOD GLUCOSE THIS AM WAS 53, 1/2 D50 ADMINISTERED W/IMPROVEMENT TO 71, THEN 130s THE REST OF THE SHIFT. PT DECLINES TO WEAR CPAP DESPITE EDUCATION PROVIDED. LONG CONVERSATION HAD AT BEDSIDE THIS AM WITH PT, HIS SON, THIS RN AND NUCLEAR MEDICINE STAFF RE: NEED FOR IMAGING/LYING FLAT W/STRESS TEST W/END RESULT OF IMAGING SUCCESSFULLY OBTAINED. FORESTRY ADVISER TO BEDSIDE W/PLAN FOR CARDIOVERSION TOMORROW, NPO AT MIDNIGHT. HEPARIN CONTINUES INFUSING PER ORDERS. PT DYSPNEIC W/ACTIVITY, O2 SATS MAINTAINED >92% ON RA - 2 L/MIN NC. FR ENFORCED THIS SHIFT. PT HAS BEEN SBA W/FWW TO RESTROOM. WILL CONTINUE TO MONITOR AND TREAT ACCORDINGLY UNTIL CHANGE OF SHIFT.
[2023-04-16 20:45] VITALS: BP 110/79
[2023-04-17] VITALS (7 sets, daily range): BP systolic 108–148; BP diastolic 75–97
[2023-04-17 01:02] LABS: Base Excess Venous -1.2 mmol/L; Bicarbonate Venous 22.7 mmol/L (24.0-30.0); PCO2 Venous 45.6 mmHg (38-42); pH Blood Venous 7.34 (7.34-7.37)
--- NOTE | 2023-04-17 01:24 | NUR ---
LATE NOTE: AT ABOUT 2300 LAST NIGHT, PT SUDDENLY BECAME INCREASINGLY AGITATED, PULLED OF GOWN, PULLED OFF TELE MONITOR, PULLED OUT IV THAT WAS ADMINISTERING HEPARIN. PT WAS REPEATEDLY ATTEMPTING OUT OF CHAIR ON HIS OWN DESPITE EDUCATION TO THE CONTRARY, VERY DIFFICULT TO REDIRECT, BECAME INCREASINGLY AGITATED. PT WAS ALSO SIGNIFICANTLY MORE CONFUSED THAN AT SHIFT ASSESSMENT, UNABLE TO TELL ME HIS , THE MONTH/YEAR, AND THOUGHT THAT HE WAS AT SCHOOL. ASSISTED PT INTO BED AND PUT PIETRO IN PLACE. PT WAS ABLE TO TOLERATE PIETRO BRIEFLY BEFORE AGAIN BECOMING AGITATED AND ATTEMPTING OOB. PIETRO AT THIS POINT WAS BECOMING A SAFETY HAZARD AND WAS REMOVED. DECISION WAS MADE BY QUIQUE STANTON RN TO HAVE WINSTON TRIANA BECOME SITTER FOR PT TO ENSURE SAFETY. CHAIR ALARM REMAINS ACTIVE. DURING THIS TIME, THIS RN AND QUIQUE STANTON RN ALSO ATTEMPTED TO START NEW IVs BUT WERE UNSUCCESSFUL. OSCAR COHEN RN WAS ABLE TO START A POWERGLIDE ON PT IN [facility] THAT IS NOW INFUSING HEPARIN. HEPARIN WAS DISCONNECTED FOR APPROXIMATELY ~1.75 HOURS IN THE INTERMEDIATE TIME. CALLED PHARMACY TO INFORM THEM AND LET THEM KNOW THAT WE HAD DRAWN BLOOD FOR A BLUE TOP IN ORDER TO CHECK BLOOD LEVELS BUT BRANDI FRANKLIN PHARMACIST INFORMED THAT WE COULD JUST CONTINUE HEPARIN AT CURRENT RATE AND RECHECK LEVELS AT PREVIOUSLY SCHEDULED 0500 DRAW TIME. NO NEED FOR ADDITIONAL DRAW NOW. DR. VILLASENOR WAS BRIEFLY AT BEDSIDE TO WITNESS PT CONFUSION AND ASK PT QUESTIONS BUT PT WAS MOSTLY SOMNOLENT AND NOT RESPONDING TO QUESTIONS AT THAT TIME. RESIDENT ORDERED VBG WHICH WAS DRAWN AND SENT AND ONE TIME PO ZYPREXA WHICH THIS RN ATTEMPTED TO ADMINISTER BUT PT REFUSED. SITTER REMAINS IN PLACE AT THIS TIME AND PT CONTINUES TO BE NOT COOPERATIVE, SPORADICALLY PULLING AT POWERGLIDE AND TELE STICKERS. CONTINUES TO BE EXTREMELY DIFFICULT TO REDIRECT. PT IS SLIGHTLY MORE ORIENTED NOW BUT STILL LESS SO THAN AT SHIFT ASSESSMENT. CONTINUING TO MONITOR.
[2023-04-17 05:22] LABS: Hematocrit 40.5 % (37.0-53.0); Hemoglobin 13.5 g/dL (13.5-17.5); Platelet Count 217 K/mm3 (150-400)
--- NOTE | 2023-04-17 05:38 | NUR ---
SHIFT SUMMARY. PT HAD FALL AT ABOUT ~0300 THIS MORNING WITH SITTER IN ROOM FOR EVENT. DESCRIBED BY KIKE MONTERO ASSISTED DESCENT WHEREIN PT ENDED UP ON GROUND. THIS RN WAS ON LUNCH AT TIME, SEE RELATED NOTE FROM QUIQUE CLEMONS FOR EXPANDED DETAILS. POST FALL ASSESSMENT COMPLETED, RESIDENT DR. VILLASENOR NOTIFIED, IRIS TO BE COMPLETED BY QUIQUE STANTON RN. NO ACUTE CHANGES FOR PT POST FALL. MENTATION UNCHANGED, FLUCTUATES. NO IDENTIFIED NEW INJURIES. PT HAD ONLY VOIDED ONE UNMEASURED VOID EARLY IN SHIFT BEFORE 0300. STRAIGHT CATH PERFORMED BY QUIQUE CLEMONS >450MLS URINE WAS COLLECTED. OUTPUT DOCUMENTED. PT NPO SINCE MIDNIGHT PENDING SECOND PART OF STRESS TEST TODAY. 1:[address] HEPARIN CONTINUES TO RUN THROUGH POWERGLIDE SALLIE. PT CONTINUES TO BE SOMNOLENT, SPORADICALLY PULLING AT LINES AND IMPULSIVELY ATTEMPTING OUT OF CHAIR. DESPITE AGITATION, UNCOOPERATIVENESS, NOT RESPONDING TO REDIRECTION, PT HAS NOT BEEN VIOLENT OR COMBATIVE WITH STAFF OUTSIDE OF VERBALLY BECOMING FRUSTRATED WITH CARE AT TIMES. CONTINUES TO NOT TOLERATE CPAP OUTSIDE OF 15-20 MINUTES DURING STRAIGHT CATH THIS MORNING. REDNESS IN FOLDS IN [place] AREA IDENTIFIED, NOTIFIED RESIDENT DR. VILLASENOR WHO ORDERED MICONAZOLE POWDER BID FOR TREATMENT. 1:[address] TO MAINTAIN SAFETY. TELE MONITOR REMAINS IN PLACE. PT IN CHAIR AT THIS TIME, SOMNOLENT BUT AT THE SAME TIME RESTLESS AND UNABLE TO REST COMFORTABLY. REFUSED ONE TIME PO ZYPREXA THIS MORNING THAT WAS ORDERED BY DR. VILLASENOR. CONTINUING TO MONITOR.
[2023-04-17 05:43] LABS: Anti-Xa UFH, PHA Monitoring 0.58 IU/mL
[2023-04-17 05:55] LABS: Albumin, Blood 2.8 g/dL (3.4-5.0); Albumin/Globulin Ratio 0.8 (0.8-1.8); Bilirubin, Total 1.1 mg/dL (0.1-1.0); Bun/Creatinine Ratio 27.8 (12.0-20.0); Calcium, Blood 8.5 mg/dL (8.5-10.1); Creatinine, Blood 2.48 mg/dL (0.60-1.20); Globulin, Blood 3.5 g/dL (2.2-4.0); Total Protein, Blood 6.3 g/dL (6.4-8.2)
--- NOTE | 2023-04-17 06:28 | NUR ---
0300 - RECEIVED A VOCERA CALL FROM POT RUNNERKIKE Chau, THAT SHE NEEDED HELP AND PT WAS ON THE FLOOR. ARRIVED TO ROOM PROMPTLY AND FOUND PT WITH ONE KNEE OFF THE FLOOR, ON HIS KNEES. PER WINSTON PT HAD SLID OUT OF HIS CHAIR. HE ALSO DID NOT HAVE OXYGEN ON. VITALS OBTAINED, PT ASSISTED BACK TO BED AT THIS TIME. PT SATTING 70% ON RA. PLACED ON 2L NC AND RECOVERED ABOVE 92%. NO CHANGE IN MENTATION. PRIMARY RN LACHELLE UPDATED.
--- NOTE | 2023-04-17 18:19 | NUR ---
END OF SHIFT PT LETHARGIC UPON CARE ASSUMPTION THIS AM. PT THEN AWAKE, IRRITABLE & RESTLESS. 1:1 SITTER AT BEDSIDE D/T PT IMPULSIVELY ATTEMPTING TO GET UP ON HIS OWN & DISORIENTED. PT THEN AWAKE, ASSISTED BACK TO BED FOR RENAL ULTRASOUND. PT STILL NOT OPENING EYES & COMMUNICATING W/ STAFF. LATER, PT THEN WAKING FULLY, A&O TO SELF & PLACE. PT DENIES RECOLLECTION OF EVENTS OVER THE NIGHT OR EVEN TRANSFERRING FROM CHAIR TO BED FOR ULTRASOUND THIS AM. PT NOW WAKING FULLY & ANSWERING Qs APPROPRIATELY. PT VSS. SPO2 > 92% ON 1L NC PRN. HOME CPAP AT BEDSIDE. PT IN RECLINER CHAIR W/ CHAIR ALARM ON.
[2023-04-18] VITALS (7 sets, daily range): BP systolic 97–130; BP diastolic 59–83
--- NOTE | 2023-04-18 06:13 | NUR ---
NOC SHIFT SUMMARY PT ORIENTED X2-3, LESS IMPULSIVE TONIGHT THAN PRIOR. SLEEPY BUT AROUSABLE WITH VERBAL STIMULATION. VSS PER PT TREND. ON 2L NC. AFIB RATE CONTROLLED ON TELEMETRY. DENIES PAIN. HEP GTT RUNNING. FLUID RESTRICTION IN PLACE. EDUCATED ON LIMITING FLUID INTAKE. CURRENTLY DOING 24HR URINE COLLECTION, STARTED 04/17/23 @ 1430. WILL PASS ON TO DAY RN
[2023-04-18 06:17] LABS: Hematocrit 40.6 % (37.0-53.0); Hemoglobin 13.2 g/dL (13.5-17.5)
[2023-04-18 06:44] LABS: Albumin, Blood 2.6 g/dL (3.4-5.0); Albumin/Globulin Ratio 0.7 (0.8-1.8); Bilirubin, Total 0.7 mg/dL (0.1-1.0); Calcium, Blood 8.5 mg/dL (8.5-10.1); Creatinine, Blood 2.33 mg/dL (0.60-1.20); Globulin, Blood 3.5 g/dL (2.2-4.0); Potassium, Blood 3.7 mmol/L (3.5-5.5); Total Protein, Blood 6.1 g/dL (6.4-8.2)
[2023-04-18 06:48] LABS: Magnesium, Blood 2.4 mg/dL (1.6-2.4)
--- NOTE | 2023-04-18 06:55 | NUR ---
0639 - NOTIFIED BY LAB THAT GLUCOSE WAS IN 40S WITH AM LAB. WENT TO ASSESS PATIENT AND IS AROUSABLE AND NO ACUTE CHANGE. POC GLUCOSE OBTAINED AND 39. GAVE PT 8OZ APPLE JUICE AND PLAN TO RECHECK IN [address] EDDY NOTIFIED VIA PHONE AND HYPOGLYCEMIA PROTOCOL PUT IN.
[2023-04-18 06:56] LABS: Albumin, Blood 2.6 g/dL (3.4-5.0); Anion Gap 6 mmol/L (6-16); Blood Urea Nitrogen 69 mg/dL (8-24); Bun/Creatinine Ratio 29.6 (12.0-20.0); CO2, Blood 27 mmol/L (21-32); Calcium, Blood 8.4 mg/dL (8.5-10.1); Chloride, Blood 105 mmol/L (98-108); Creatinine, Blood 2.33 mg/dL (0.60-1.20); Glomerular Filtration Rate 28 (60-); Phosphorus, Blood 4.3 mg/dL (2.5-4.9); Potassium, Blood 3.7 mmol/L (3.5-5.5); Sodium, Blood 138 mmol/L (136-145)
[2023-04-18 06:57] LABS: Glucose, Blood 44 mg/dL (70-99)
--- NOTE | 2023-04-18 18:06 | NUR ---
END OF SHIFT PT A&O X3, FORGETFUL. VSS. SPO2 > 92% ON 1L NC PRN. HOME CPAP AT BEDSIDE. PT IN RECLINER CHAIR W/ CHAIR ALARM ON. PT ENCOURAGED TO WEAR CPAP OVERNIGHT. 24 HR URINE COLLECTION REQUIRING RESTARTING. 24HR URINE TO REBEGIN W/ NEXT VOID. PT SITTING UP IN RECLINER CHAIR W/ CHAIR ALARM ON. PT CALLING APPROPRIATELY W/ CALL LIGHT THIS EVENING.
--- NOTE | 2023-04-18 22:19 | NUR ---
ASSUMPTION OF CARE: PATIENT ON RA, CPAP ON THE BED PATIENT IN RECLINER, RESTING EYES CLOSED. AWOKE TO VERBAL STIMULI EASILY, ABLE TO ANSWER QUESTIONS WELL, IMPROVING NEURO SINCE PREVIOUSLY SEEN PATIENT. ABLE TO STAND WITH 1P FWW AND GAIT BELT. HAS TO STAND FOR URINAL, 24 HOUR URINE STARTED. DECLINES CHEST PAIN PRESSURE, MILD SOB AT REST IMPROVING. DIURESING WELL WITH INCREASE, STILL SIGNIFICANT EDEMA ABD TO BLE. WANTS TO SLEEP IN RECLINER. CBG 138. NO INSULIN GIVEN. PATIENT TOLERATED PILLS WITH WATER FINE. MODERATE NONPRODUCTIVE COUGH, NOTED, HELD BOWEL MEDS DUE TO FREQUNT STOOLS.
[2023-04-19 04:00] VITALS: BP 129/70
[2023-04-19 04:29] LABS: Hematocrit 39.4 % (37.0-53.0)
[2023-04-19 05:02] LABS: Albumin, Blood 2.5 g/dL (3.4-5.0); Anion Gap 4 mmol/L (6-16); Blood Urea Nitrogen 73 mg/dL (8-24); Bun/Creatinine Ratio 28.9 (12.0-20.0); CO2, Blood 30 mmol/L (21-32); Calcium, Blood 8.1 mg/dL (8.5-10.1); Chloride, Blood 106 mmol/L (98-108); Creatinine, Blood 2.53 mg/dL (0.60-1.20); Glomerular Filtration Rate 25 (60-); Glucose, Blood 80 mg/dL (70-99); Magnesium, Blood 2.3 mg/dL (1.6-2.4); Phosphorus, Blood 4.2 mg/dL (2.5-4.9); Sodium, Blood 140 mmol/L (136-145)
--- NOTE | 2023-04-19 05:32 | NUR ---
EOS: NO CHANGES FROM ASSUMPTION OF CARE.
[2023-04-19 09:19] VITALS: BP 119/76
[2023-04-19 11:21] VITALS: BP 97/65
[2023-04-19 16:14] VITALS: BP 114/74
--- NOTE | 2023-04-19 17:59 | NUR ---
SHIFT SUMMARY this rn assumed care at 1400. patient vital signs stable and have remained stable. patient reports no chest pain/pressure, pain, or shortness of breath. 24 hour is to be finished at 2017 this evening will report to oncoming RN. plan of care is up to date.
[2023-04-19 20:08] VITALS: BP 112/72
[2023-04-19 21:11] LABS: Protein, Urine Quantitative 40.3 mg/dL (0.0-11.9)
[2023-04-19 23:01] VITALS: BP 100/76
[2023-04-20 03:28] VITALS: BP 125/71
[2023-04-20 03:43] LABS: Hematocrit 39.9 % (37.0-53.0); Hemoglobin 13.2 g/dL (13.5-17.5)
[2023-04-20 04:05] LABS: Alanine Aminotransfer (ALT/SGP 200 U/L (12-78); Albumin, Blood 2.7 g/dL (3.4-5.0); Albumin/Globulin Ratio 0.8 (0.8-1.8); Alk Phos 187 U/L (50-136); Anion Gap 5 mmol/L (6-16); Aspartate Aminotrans (AST/SGOT 76 U/L (12-37); Bilirubin, Total 0.8 mg/dL (0.1-1.0); Blood Urea Nitrogen 79 mg/dL (8-24); Bun/Creatinine Ratio 31.3 (12.0-20.0); CO2, Blood 32 mmol/L (21-32); Calcium, Blood 8.4 mg/dL (8.5-10.1); Chloride, Blood 103 mmol/L (98-108); Creatinine, Blood 2.52 mg/dL (0.60-1.20); Globulin, Blood 3.5 g/dL (2.2-4.0); Glomerular Filtration Rate 25 (60-); Glucose, Blood 242 mg/dL (70-99); Magnesium, Blood 2.4 mg/dL (1.6-2.4); Phosphorus, Blood 3.9 mg/dL (2.5-4.9); Potassium, Blood 4.1 mmol/L (3.5-5.5); Sodium, Blood 140 mmol/L (136-145); Total Protein, Blood 6.2 g/dL (6.4-8.2)
--- NOTE | 2023-04-20 04:58 | NUR ---
SHIFT SUMMARY PT ALERT AND ORIENTED X4, COOPERATIVE WITH CARE AND ABLE TO MAKE NEEDS KNOWN. HE IS HOH. ANDREWS. HE HAS BARELY SLEPT ALL SHIFT. HE HAS CPAP AT BEDSIDE, HE SAID HE DOESN'T LIKE TO WEAR IT, BUT HE WORE IT FOR THE BRIEF PERIOD THAT HE DID SLEEP THIS SHIFT. PT ON RA AND MAINTAINING 02 SATURATION ABOVE 92%, HE DENIES SOB. PT'S HR 80'S-90'S AFLUTTER/BBB/OCCASIONAL PVCs, HE HAS DENIED CHEST PAIN/PRESSURE ALL SHIFT. PT HAS NOT HAD INCONTINENT EPISODE THIS SHIFT, CALLS APPROPRIATELY WHEN NEEDS TO USE THE RESTROOM, AND USES BATHROOM WITH WALKER AND 1 PERSON ASSIST. SWELLING OF BLE PRESENT, PT ENCOURAGED TO ELEVATE HIS FEET, PT ELEVATES THEM WHEN HE WANTS TO. PT PREFERS TO BE IN RECLINER OVER BED. HE IS CURRENTLY UP IN RECLINER WATCHING TV, CALL LIGHT WITHIN REACH.
[2023-04-20 08:50] VITALS: BP 105/70
[2023-04-20 11:21] VITALS: BP 123/75
--- NOTE | 2023-04-20 14:29 | NUR ---
SHIFT SUMMARY/TRANSFER OF CARE this rn assumed care at 0700. vital signs stable and remain stable. changed to medical status no tele, previously on tele was aflutter/afib 80-110s. patient is alert and oriented x4. perrla. intermittently forgetful. patient is able to make needs known and uses call light appropriately. patient reports no chest pain/pressure, shortness of breath or pain. see shift assessment for further detials. plan is to diuresis patient a day or two per malin and then patient is able to go home. report given to reggie lilly.
[2023-04-20 17:44] VITALS: BP 114/78
--- NOTE | 2023-04-20 18:11 | NUR ---
PATIENT IS ALERT AND ORIENTED AND COOPERATIVE WITH CARE. PLAN IS FOR DIURESIS WITH IV BUMEX. HE TRANSFERRED FROM PCU 14 THIS AFTERNOON. ON RA. SBA IN HIS ROOM WITH FWW. CBG THIS EVENING WAS 401, DR. GAYTAN MADE AWARE. WILL CONTINUE TO MONITOR
[2023-04-20 19:28] VITALS: BP 130/77
[2023-04-21 05:22] LABS: Hematocrit 41.1 % (37.0-53.0); Hemoglobin 13.8 g/dL (13.5-17.5)
[2023-04-21 05:50] VITALS: BP 106/73
[2023-04-21 06:06] LABS: Albumin, Blood 2.9 g/dL (3.4-5.0); Anion Gap 6 mmol/L (6-16); Blood Urea Nitrogen 82 mg/dL (8-24); Bun/Creatinine Ratio 32.9 (12.0-20.0); CO2, Blood 32 mmol/L (21-32); Calcium, Blood 8.8 mg/dL (8.5-10.1); Chloride, Blood 99 mmol/L (98-108); Creatinine, Blood 2.49 mg/dL (0.60-1.20); Glomerular Filtration Rate 25 (60-); Glucose, Blood 254 mg/dL (70-99); Magnesium, Blood 2.3 mg/dL (1.6-2.4); Phosphorus, Blood 4.2 mg/dL (2.5-4.9); Potassium, Blood 4.1 mmol/L (3.5-5.5); Sodium, Blood 137 mmol/L (136-145)
--- NOTE | 2023-04-21 07:33 | NUR ---
Shift Summary Pt diuressing and on strict I/O and a 1,000 mL/day fluid restriction. Good output tonight, no issues voiding. Pt independent with in the room with his walker. He is having difficulty sleeping in the recliner and the bed in his room. His home CPAP is in the room which he is using. Pt AOx4 and cooperative with care.
[2023-04-21 08:15] VITALS: BP 132/72
[2023-04-21 15:52] VITALS: BP 116/53
--- NOTE | 2023-04-21 18:10 | NUR ---
SHIFT SUMMARY PT AOX4, SBA WITH FWW TO THE BR. 1000ML FLUID RESTRICTION WHICH THE PT COMPLIES WITH, ICE CHIPS PROVIDED TODAY FOR DRY MOUTH. HE SAID IT PROVIDED RELIEF. HE IS COOPERATIVE AND PLEASANT, CALLING TO MAKE HIS NEEDS KNOWN. HE HAS BEEN UP IN THE CHAIR MOST OF THE SHIFT. HIS OWN PERSONAL CPAP AT THE BS. CALL LIGHT WITHIN REACH, BED IN THE LOWEST POSITION. WILL REPORT TO ONCOMING NURSE.
[2023-04-21 20:46] VITALS: BP 187/168
[2023-04-21 21:30] VITALS: BP 179/159
--- NOTE | 2023-04-21 22:00 | NUR ---
HYPERTENSION 2129 PT HYPERTENSIVE WITH PM VITAL CHECK BP 187/168, REPEATED VITALS WERE 179/159. PT REPORTS THAT HE FEELS OK AND HE DENIES CHEST PAIN. SKIN WARM AND DRY, NO SOB, NO N/V. PT HR IS ALSO TACHYCARDIC, RATE BOUNCING AROUND ON MONTOR MACHINE AND VITALS MACHINE. HR IS IN THE LOW 100'S. PATTI MCMAHON NP CALLED AND NOTIFIED OF BP READINGS AND TACHYCARDIA. HE STATED HE DID NOT WANT TO ORDER ANYTHING FOR BLOOD PRESSURE AT THIS TIME. DID NOT WANT TO ORDER TELE AT THIS TIME FOR HR. HE STATES IF HR IS IRREGULAR WITH AUSCULTATION TO ORDER A 12 LEAD EKG, OTHER NO ORDERS AT THIS TIME. AFTER PHONE CALL WITH ELBA MCMAHON NP, HR WAS AUSCULATED BY ME AND CONFIRMED WITH SECOND RN, HONING MACHINE OPERATOR SEMIAUTOMATIC ANNALEE MELTON. HR IS TACHYCARDIC BUT IS NOT IRREGULAR. PT CONTINUES TO REPORT THAT HE FEELS OK, AND IS ASYMPTOMATIC.
[2023-04-22 00:24] VITALS: BP 102/90
--- NOTE | 2023-04-22 03:26 | NUR ---
SHIFT SUMMARY PT HAS BEEN AWAKE MOST OF THE NIGHT AND ANXIOUS. ALTERNATING BETWEEN THE BED AND RECLINER FREQUENTLY. PT GIVEN MELATONIN AT HS WHICH HAS NOT BEEN EFFECTIVE. PT A/OX4, ANSWERS QUESTIONS APPROPRIATLY. PT HYPERTENSIVE AT THE START OF THE SHIFT AND PROVIDER NOTIFIED, NO INTERVENTIONS ORDERED. PT DENIES CP AND STATES THAT HE FEELS FINE. BP MONITORED AND HAS CORRECTED ITSELF THE NIGHT HAS PROGRESSED. PT VOIDING ADEQUATELY AFTER LASIK THAT WAS GIVEN JUST BEFORE SHIFT CHANGE. PT COMPLIANT WITH FLUID RESTRICTION. BED IN LOWEST POSITION, CALL LIGHT WITHIN REACH.
[2023-04-22 04:20] VITALS: BP 111/78
[2023-04-22 05:14] LABS: Hematocrit 41.4 % (37.0-53.0); Hemoglobin 13.7 g/dL (13.5-17.5)
[2023-04-22 05:42] LABS: Anion Gap 7 mmol/L (6-16); Blood Urea Nitrogen 90 mg/dL (8-24); Bun/Creatinine Ratio 33.8 (12.0-20.0); CO2, Blood 34 mmol/L (21-32); Calcium, Blood 9.4 mg/dL (8.5-10.1); Chloride, Blood 94 mmol/L (98-108); Creatinine, Blood 2.66 mg/dL (0.60-1.20); Glomerular Filtration Rate 24 (60-); Glucose, Blood 364 mg/dL (70-99); Magnesium, Blood 2.3 mg/dL (1.6-2.4); Phosphorus, Blood 4.7 mg/dL (2.5-4.9); Potassium, Blood 4.1 mmol/L (3.5-5.5); Sodium, Blood 135 mmol/L (136-145)
[2023-04-22 08:11] VITALS: BP 125/77
[2023-04-22 12:36] LABS: SARS-Cov-2 (COVID-19) PCR, MMC NEGATIVE (NEGATIVE)
[2023-04-22] MEDS ORDERED: DOCU100 PO (14:40)
[2023-04-22] MEDS ORDERED: METO50ER PO (14:41)
[2023-04-22] MEDS ORDERED: ENTRESTO 24 MG1 EACH PO (14:42)
[2023-04-22] MEDS ORDERED: BUME1 PO (14:42)
[2023-04-22] MEDS ORDERED: XARELTO15 MG PO (14:42)
--- NOTE | 2023-04-22 15:29 | NUR ---
DISCHARGE NOTE PT DISCHARGED TO [facility], PICKED UP BY [facility]SP[facility]. REPORT GIVEN TO DEONTE WYNNE, AT [facility]. PG REMOVED SUCCESSFULLY. PERSONAL BELONGINGS RETURNED. PACKET OF MEDICATION INFORMATION AND FACILITY INFORMATION PROVIDED TO THE INTERIOR SPECIALIST.
== END 2023-04-22 15:25 | DRG 291 ==
LOC: ER 15:12 → MEDS 19:33 → ER 19:33 → MEDS 19:33 → PCU 04-12 12:46 → MEDS 04-12 12:47 → PCU 04-14 09:06 → MEDS 04-20 14:56
PROVIDERS: Family Medicine; Hospitalist; Internal Medicine Nephrology; Student in an Organized Health Care Education/Training Program; ADMIT Internal Medicine
DX: I13.0 Hypertensive heart and chronic kidney disease with heart failure and stage 1 through stage 4 chronic kidney disease, or unspecified chronic kidney disease (principal); I50.43 Acute on chronic combined systolic (congestive) and diastolic (congestive) heart failure; J96.01 Acute respiratory failure with hypoxia; N17.0 Acute kidney failure with tubular necrosis; I48.92 Unspecified atrial flutter; I47.20 Ventricular tachycardia, unspecified; N25.81 Secondary hyperparathyroidism of renal origin; E87.1 Hypo-osmolality and hyponatremia; Z68.41 Body mass index [BMI] 40.0-44.9, adult; I25.10 Atherosclerotic heart disease of native coronary artery without angina pectoris; G47.33 Obstructive sleep apnea (adult) (pediatric); J84.112 Idiopathic pulmonary fibrosis; I27.20 Pulmonary hypertension, unspecified; N18.30 Chronic kidney disease, stage 3 unspecified; E11.22 Type 2 diabetes mellitus with diabetic chronic kidney disease; E87.5 Hyperkalemia; R94.5 Abnormal results of liver function studies; E88.09 Other disorders of plasma-protein metabolism, not elsewhere classified; R74.01 Elevation of levels of liver transaminase levels; E66.01 Morbid (severe) obesity due to excess calories; E87.6 Hypokalemia; E11.649 Type 2 diabetes mellitus with hypoglycemia without coma; E78.5 Hyperlipidemia, unspecified; D63.1 Anemia in chronic kidney disease; Z90.89 Acquired absence of other organs; Z79.01 Long term (current) use of anticoagulants; Z79.82 Long term (current) use of aspirin; Z79.899 Other long term (current) drug therapy; Z99.89 Dependence on other enabling machines and devices; Z79.4 Long term (current) use of insulin; Z88.1 Allergy status to other antibiotic agents; Z95.1 Presence of aortocoronary bypass graft; Z88.0 Allergy status to penicillin; Z88.2 Allergy status to sulfonamides; Z87.891 Personal history of nicotine dependence; Z11.52 Encounter for screening for COVID-19
CPT/HCPCS: 36415; 71045; 71046; 76770; 78452; 80048; 80053; 80069; 81050; 82803; 82947; 83735; 83880; 84100; 84132; 84156; 84443; 84484; 85014; 85018; 85025; 85049; 85520; 85610; 85730; 93005; 93010; 93017; 94660; 94762; 96372; 96374; 96375; 97110; 97116; 97161; 97166; 97530; 97535; 99285-25; A9270; A9500; C1751; C8929; G0378; J0282; J0706; J1644; J1650; J1815; J1940; J2785; J7060; Q9957; U0002

== ENCOUNTER 2023-06-11 13:13 | Emergency (ER) | payer MEDICARE ==
[~2023-06-11] VITALS: Ht 172.7 cm; Wt 127.0 kg
[~2023-06-11 13:13] MED LIST changes: +BUME1 PO; +ENTRESTO 24 MG1 EACH PO; +HUMALOG KW100 UNIT/1 SC; +Imdur-ER60 MG PO; +LASIX20 M2 PO; +TORSE20 PO; +XARELTO15 MG PO
[2023-06-11 14:11] LABS: BASOPHILS ABSOLUTE AUTO 0.04 K/mm3 (0.00-0.23); BASOPHILS PERCENT AUTO 1 % (0-2); EOSINOPHILS ABSOLUTE AUTO 0.14 K/mm3 (0.00-0.68); EOSINOPHILS PERCENT AUTO 2 % (0-6); Hematocrit 36.1 % (37.0-53.0); IMMATURE GRAN ABSOLUTE AUTO 0.03 K/mm3 (0.00-0.10); IMMATURE GRAN PERCENT AUTO 0 % (0-1); LYMPHOCYTES ABSOLUTE AUTO 1.12 K/mm3 (0.84-5.20); LYMPHOCYTES PERCENT AUTO 15 % (21-46); MONOCYTES ABSOLUTE AUTO 0.59 K/mm3 (0.16-1.47); MONOCYTES PERCENT AUTO 8 % (4-13); Mean Corpuscular HGB 27.4 pg (26.0-34.0); Mean Corpuscular HGB Conc 33.2 g/dL (31.5-36.5); Mean Corpuscular Volume 82 fL (80-100); Mean Platelet Volume 10.2 fL (9.1-12.4); NEUTROPHILS ABSOLUTE AUTO 5.72 K/mm3 (1.96-9.15); NEUTROPHILS PERCENT AUTO 75 % (41-73); Platelet Count 211 K/mm3 (150-400); RDW Coefficient Variation 15.1 % (11.7-14.2); RDW Standard Deviation 45.3 fL (35.1-46.3); Red Blood Cell Count 4.38 M/mm3 (4.30-5.90); White Blood Cell Count 7.64 K/mm3 (4.00-11.30)
[2023-06-11 14:24] LABS: Albumin, Blood 2.8 g/dL (3.4-5.0); Albumin/Globulin Ratio 0.7 (0.8-1.8); Bun/Creatinine Ratio 21.6 (12.0-20.0); Calcium, Blood 8.6 mg/dL (8.5-10.1); Creatinine, Blood 1.9 mg/dL (0.60-1.20); Globulin, Blood 4.1 g/dL (2.2-4.0); Potassium, Blood 3.3 mmol/L (3.5-5.5); Total Protein, Blood 6.9 g/dL (6.4-8.2)
[2023-06-11 14:39] LABS: Influenza A, PCR NEGATIVE (NEGATIVE); Influenza B, PCR NEGATIVE (NEGATIVE); Resp Syncytial Virus, PCR NEGATIVE (NEGATIVE); SARS-Cov-2 (COVID-19) PCR, MMC NEGATIVE (NEGATIVE)
[2023-06-11] MEDS ORDERED: Bumetanide 0.25 MG/ML 10ML Vial IV ONE (16:50)
[2023-06-11] MEDS ORDERED: Metolazone 5 MG Tab PO ONE (16:50)
[2023-06-11] MEDS ORDERED: Potassium Chloride 10 Meq Tablet SA PO ONE (16:50)
[2023-06-11 17:26] VITALS: BP 118/67
== END 2023-06-11 17:32 | disposition home or self-care (01) ==
LOC: ER 13:13
PROVIDERS: Student in an Organized Health Care Education/Training Program
DX: I48.20 Chronic atrial fibrillation, unspecified (principal); E87.6 Hypokalemia; E87.1 Hypo-osmolality and hyponatremia; I11.0 Hypertensive heart disease with heart failure; I50.9 Heart failure, unspecified; E11.9 Type 2 diabetes mellitus without complications; E78.5 Hyperlipidemia, unspecified; G47.33 Obstructive sleep apnea (adult) (pediatric); I25.10 Atherosclerotic heart disease of native coronary artery without angina pectoris; Z87.891 Personal history of nicotine dependence; Z95.1 Presence of aortocoronary bypass graft; Z79.4 Long term (current) use of insulin; Z79.01 Long term (current) use of anticoagulants; Z79.82 Long term (current) use of aspirin; Z79.899 Other long term (current) drug therapy; Z88.0 Allergy status to penicillin; Z88.1 Allergy status to other antibiotic agents; Z88.2 Allergy status to sulfonamides
CPT/HCPCS: 0241U; 71046; 80053; 83880; 85025; A9270

== ENCOUNTER 2023-07-15 05:42 | Emergency (ER) | payer MEDICARE ==
[~2023-07-15] VITALS: Ht 175.3 cm; Wt 90.7 kg
[2023-07-15 06:11] LABS: BASOPHILS ABSOLUTE AUTO 0.05 K/mm3 (0.00-0.23); BASOPHILS PERCENT AUTO 0 % (0-2); EOSINOPHILS ABSOLUTE AUTO 0.16 K/mm3 (0.00-0.68); EOSINOPHILS PERCENT AUTO 1 % (0-6); Hematocrit 42.4 % (37.0-53.0); Hemoglobin 14.5 g/dL (13.5-17.5); IMMATURE GRAN ABSOLUTE AUTO 0.06 K/mm3 (0.00-0.10); IMMATURE GRAN PERCENT AUTO 1 % (0-1); LYMPHOCYTES ABSOLUTE AUTO 1.43 K/mm3 (0.84-5.20); LYMPHOCYTES PERCENT AUTO 12 % (21-46); MONOCYTES ABSOLUTE AUTO 0.88 K/mm3 (0.16-1.47); MONOCYTES PERCENT AUTO 7 % (4-13); Mean Corpuscular HGB 26.8 pg (26.0-34.0); Mean Corpuscular HGB Conc 34.2 g/dL (31.5-36.5); Mean Corpuscular Volume 78 fL (80-100); Mean Platelet Volume 10.9 fL (9.1-12.4); NEUTROPHILS ABSOLUTE AUTO 9.79 K/mm3 (1.96-9.15); NEUTROPHILS PERCENT AUTO 79 % (41-73); Platelet Count 320 K/mm3 (150-400); RDW Coefficient Variation 15.7 % (11.7-14.2); RDW Standard Deviation 43.5 fL (35.1-46.3); Red Blood Cell Count 5.41 M/mm3 (4.30-5.90); White Blood Cell Count 12.37 K/mm3 (4.00-11.30)
[2023-07-15 07:02] LABS: Albumin, Blood 2.6 g/dL (3.4-5.0); Albumin/Globulin Ratio 0.6 (0.8-1.8); Bilirubin, Total 1.7 mg/dL (0.1-1.0); Bun/Creatinine Ratio 39.7 (12.0-20.0); Calcium, Blood 8.5 mg/dL (8.5-10.1); Creatinine, Blood 2.09 mg/dL (0.60-1.20); Globulin, Blood 4.6 g/dL (2.2-4.0); Potassium, Blood 2.8 mmol/L (3.5-5.5); Total Protein, Blood 7.2 g/dL (6.4-8.2)
[2023-07-15] MEDS ORDERED: Potassium Chl 20MEQ/Water100ML 100 ML IV ONE (07:10)
[2023-07-15] MEDS ORDERED: Potassium Chloride 20 MEQ TabCR PO ONE (07:10)
[2023-07-15] MEDS ORDERED: Insulin Human Lispro 100 Units/ML 3ML Syringe SC ONE ×2 (07:15→09:50)
[2023-07-15 07:38] LABS: Source, Urine Clean Catch
[2023-07-15 07:46] LABS: Appearance, Urine Clear (Clear); Bilirubin, Urine Neg (Neg); Blood, Urine 2+ (Neg); Color, Urine Yellow (P-Yellow); Glucose Qualitative, Urine 1+ (Neg); Ketones, Urine Neg (Neg); Leukocyte Esterase, Urine Neg (Neg); Nitrite, Urine Neg (Neg); Protein, Urine 3+ (Neg); Urobilinogen, Urine NORM (Normal); pH, Urine 6.5 (5.0-8.0)
[2023-07-15 07:54] LABS: Bacteria Rare /hpf; Squamous Epithelial Cells Rare /hpf (Few); White Blood Cells, Urine 0-2 /hpf (0-5)
[2023-07-15 08:38] LABS: Influenza A, PCR NEGATIVE (NEGATIVE); Influenza B, PCR NEGATIVE (NEGATIVE); Resp Syncytial Virus, PCR NEGATIVE (NEGATIVE); SARS-Cov-2 (COVID-19) PCR, MMC NEGATIVE (NEGATIVE)
[2023-07-15] MEDS ORDERED: NS 1,000 ML IV SCH (08:45)
[2023-07-15 12:38] VITALS: BP 133/86
[2023-07-19] MEDS ORDERED: EUTHYROX50 MCG PO (01:20)
[2023-07-19] MEDS ORDERED: TRAZ50 PO (01:22)
[2023-07-19] MEDS ORDERED: KLOR-CON 1010 ME9 PO (01:41)
[2023-07-19] MEDS ORDERED: METO5 PO (01:43)
[2023-07-22] MEDS ORDERED: SPIR25 PO (13:19)
[2023-07-22] MEDS ORDERED: JARDIANCE10 MG PO (13:19)
== END 2023-07-15 12:43 | disposition home or self-care (01) ==
LOC: ER 05:42
PROVIDERS: Emergency Medicine; Student in an Organized Health Care Education/Training Program
DX: R55 Syncope and collapse (principal); E11.65 Type 2 diabetes mellitus with hyperglycemia; E87.6 Hypokalemia; I11.0 Hypertensive heart disease with heart failure; I50.9 Heart failure, unspecified; G47.33 Obstructive sleep apnea (adult) (pediatric); I25.810 Atherosclerosis of coronary artery bypass graft(s) without angina pectoris; I48.91 Unspecified atrial fibrillation; E78.5 Hyperlipidemia, unspecified; Z87.891 Personal history of nicotine dependence; Z79.4 Long term (current) use of insulin; Z79.82 Long term (current) use of aspirin; Z79.01 Long term (current) use of anticoagulants; Z79.899 Other long term (current) drug therapy; Z88.0 Allergy status to penicillin; Z88.1 Allergy status to other antibiotic agents; Z88.2 Allergy status to sulfonamides; Z98.890 Other specified postprocedural states; W18.39XA Other fall on same level, initial encounter
CPT/HCPCS: 0241U; 51701; 70450; 80053; 81001; 82947; 83735; 83930; 85025; 93005; 93010; 96361-59; 96365-59; 96366-59; 99285-25; A9270; J1815; J3480; J7030

== ENCOUNTER 2024-10-07 16:50 | Inpatient (IN) | payer MEDICARE ==
[~2024-10-07] VITALS: Ht 175.3 cm; Wt 112.0 kg
[~2024-10-07 16:50] MED LIST changes: +ASPIR 8181 M1 PO; +BUMETANIDE2 M6 PO; +CEFU500T30 PO; +EUTHYROX50 MCG PO; +JARDIANCE10 MG PO; +KLOR-CON 1010 ME9 PO; +METO25 PO; +METO5 PO; +Prinivil10 MG PO; +SPIR25 PO; +TRAZ50 PO; +VISBIOME 112.51 EACH PO
[2024-10-07] MEDS ORDERED: NS 1,000 ML IV SCH (17:55)
[2024-10-07 18:31] LABS: BASOPHILS ABSOLUTE AUTO 0.09 K/mm3 (0.00-0.23); BASOPHILS PERCENT AUTO 1 % (0-2); EOSINOPHILS ABSOLUTE AUTO 0.36 K/mm3 (0.00-0.68); EOSINOPHILS PERCENT AUTO 3 % (0-6); Hematocrit 35.8 % (37.0-53.0); IMMATURE GRAN PERCENT AUTO 1 % (0-1); LYMPHOCYTES ABSOLUTE AUTO 1.39 K/mm3 (0.84-5.20); LYMPHOCYTES PERCENT AUTO 12 % (21-46); MONOCYTES ABSOLUTE AUTO 0.67 K/mm3 (0.16-1.47); MONOCYTES PERCENT AUTO 6 % (4-13); Mean Corpuscular HGB 29.1 pg (26.0-34.0); Mean Corpuscular HGB Conc 33.5 g/dL (31.5-36.5); Mean Corpuscular Volume 87 fL (80-100); NEUTROPHILS ABSOLUTE AUTO 8.68 K/mm3 (1.96-9.15); NEUTROPHILS PERCENT AUTO 77 % (41-73); Platelet Count 295 K/mm3 (150-400); Red Blood Cell Count 4.12 M/mm3 (4.30-5.90); White Blood Cell Count 11.29 K/mm3 (4.00-11.30)
[2024-10-07 18:53] LABS: Albumin, Blood 2.8 g/dL (3.4-5.0); Albumin/Globulin Ratio 0.6 (0.8-1.8); Bilirubin, Total 0.6 mg/dL (0.1-1.0); Bun/Creatinine Ratio 25.9 (12.0-20.0); Calcium, Blood 8.9 mg/dL (8.5-10.1); Creatinine, Blood 3.17 mg/dL (0.60-1.20); Globulin, Blood 4.6 g/dL (2.2-4.0); Potassium, Blood 5.6 mmol/L (3.5-5.5); Total Protein, Blood 7.4 g/dL (6.4-8.2)
[2024-10-07] MEDS ORDERED: CefTRIAXone Sodium 1,000 MG in NS 100 ML IV ONE (19:40)
[2024-10-07] MEDS ORDERED: Vancomycin HCL 2,000 MG in NS 500 ML IV ONE (19:50)
[2024-10-07] MEDS ORDERED: Ondansetron HCl 2 MG / ML 2ML Vial IV PRN (20:40)
[2024-10-07] MEDS ORDERED: Acetaminophen 325 MG TABLET PO PRN (20:40)
[2024-10-07] MEDS ORDERED: TraZODone HCl 50 MG Tab PO PRN (20:45)
[2024-10-07] MEDS ORDERED: Insulin Glargine-Yfgn 100 Unit/mL 3 ML SYR SC SCH (21:00)
[2024-10-07] MEDS ORDERED: Metoprolol Tartrate 25 MG Tab PO SCH (21:00)
[2024-10-07] MEDS ORDERED: Lactobacil 2-S.Thermo-Bifido 1 1 Cap PO SCH (21:00)
[2024-10-07] MEDS ORDERED: Sacubitril/Valsartan 24 MG-26 MG Tab PO SCH (21:00)
--- NOTE | 2024-10-07 21:52 | NUR ---
REPORT RECEIVED FROM CODEY (TOOL CARRIER) AND AWAITING PT T/F TO ROOM 343.
[2024-10-07 22:24] VITALS: BP 148/63
[2024-10-08 03:47] VITALS: BP 125/64
--- NOTE | 2024-10-08 05:44 | NUR ---
ADMIT AND SUMMARY: PT ADMIT TO ROOM 343 VIA GURNEY AT 2200. HE'S A/OX4, WAS ORIENTED TO ROOM AND CALL SYSTEM AND CALLS APPROPRIATELY TO SPECIFY NEEDS. HE'S 1PA W/FWW TO TOILET AND USED URINAL AD JOYCE AT EOB. 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 SMALL AMT OF ESCHAR W/SURROUNDING INFLAMMATION AND REDNESS OBSERVED. IV ABX RECEIVED IN ER THEN SL'D AND TRAZADONE WAS PROVIDED PRN PER PT REQUEST FOR SLEEP. VSS/AFEBRILE AND NO ACUTE CHANGES. WILL REPORT TO DAY RN.
[2024-10-08] MEDS ORDERED: Levothyroxine Sodium 0.05 MG Tab PO SCH (06:00)
[2024-10-08 06:01] LABS: BASOPHILS ABSOLUTE AUTO 0.05 K/mm3 (0.00-0.23); BASOPHILS PERCENT AUTO 1 % (0-2); EOSINOPHILS ABSOLUTE AUTO 0.27 K/mm3 (0.00-0.68); EOSINOPHILS PERCENT AUTO 3 % (0-6); Hematocrit 32.4 % (37.0-53.0); Hemoglobin 10.8 g/dL (13.5-17.5); IMMATURE GRAN ABSOLUTE AUTO 0.07 K/mm3 (0.00-0.10); IMMATURE GRAN PERCENT AUTO 1 % (0-1); LYMPHOCYTES ABSOLUTE AUTO 0.89 K/mm3 (0.84-5.20); LYMPHOCYTES PERCENT AUTO 10 % (21-46); MONOCYTES ABSOLUTE AUTO 0.53 K/mm3 (0.16-1.47); MONOCYTES PERCENT AUTO 6 % (4-13); Mean Corpuscular HGB 29.3 pg (26.0-34.0); Mean Corpuscular HGB Conc 33.3 g/dL (31.5-36.5); Mean Corpuscular Volume 88 fL (80-100); NEUTROPHILS ABSOLUTE AUTO 7.38 K/mm3 (1.96-9.15); NEUTROPHILS PERCENT AUTO 80 % (41-73); Platelet Count 200 K/mm3 (150-400); RDW Standard Deviation 44.7 fL (35.1-46.3); Red Blood Cell Count 3.68 M/mm3 (4.30-5.90); White Blood Cell Count 9.19 K/mm3 (4.00-11.30)
[2024-10-08 06:26] LABS: Alanine Aminotransfer (ALT/SGP 40 U/L (12-78); Albumin, Blood 2.4 g/dL (3.4-5.0); Albumin/Globulin Ratio 0.6 (0.8-1.8); Alk Phos 157 U/L (50-136); Anion Gap 9 mmol/L (3-11); Aspartate Aminotrans (AST/SGOT 20 U/L (12-37); Bilirubin, Total 0.6 mg/dL (0.1-1.0); Blood Urea Nitrogen 77 mg/dL (8-24); Bun/Creatinine Ratio 29.4 (12.0-20.0); CO2, Blood 23 mmol/L (21-32); Calcium, Blood 8.4 mg/dL (8.5-10.1); Chloride, Blood 107 mmol/L (98-108); Creatinine, Blood 2.62 mg/dL (0.60-1.20); Globulin, Blood 3.7 g/dL (2.2-4.0); Glomerular Filtration Rate 24 (60-); Glucose, Blood 190 mg/dL (70-99); Magnesium, Blood 2.2 mg/dL (1.6-2.4); Potassium, Blood 4.9 mmol/L (3.5-5.5); Sodium, Blood 134 mmol/L (136-145); Total Protein, Blood 6.1 g/dL (6.4-8.2); Vancomycin, Random 26.7 ug/mL
[2024-10-08 07:27] VITALS: BP 98/45
[2024-10-08] MEDS ORDERED: Insulin Human Lispro 100 Units/ML 3ML Syringe SC SCH (07:30)
[2024-10-08] MEDS ORDERED: Miconazole Nitrate 2% 85 GM PWD TOP SCH (09:00)
[2024-10-08 09:10] VITALS: BP 117/48
[2024-10-08] MEDS ORDERED: Prinivil10 MG PO (15:38)
[2024-10-08 16:56] VITALS: BP 148/58
[2024-10-08] MEDS ORDERED: Rivaroxaban 10 MG Tab PO SCH (17:00)
--- NOTE | 2024-10-08 18:44 | NUR ---
DAY SUMMARY A&OX4, VSS, DENIED PAIN THIS SHIFT, CONT X2, SBA W/POST OP SHOE TO BR, UP TO CHAIR FOR DINNER, FAMILY AT BEDSIDE, CALL LIGHT IN REACH, WILL CONT TO MONITOR UNTIL REPORT GIVEN TO ONCOMING NURSE
[2024-10-08 20:21] VITALS: BP 147/69
[2024-10-08] MEDS ORDERED: NS 250 ML IV SCH (20:30)
[2024-10-08 20:36] LABS: Vancomycin, Random 18.7 ug/mL
[2024-10-08] MEDS ORDERED: Insulin Glargine-Yfgn 100 Unit/mL 3 ML SYR SC SCH (21:00)
[2024-10-08] MEDS ORDERED: CefTRIAXone Sodium 1,000 MG in NS 100 ML IV SCH (21:00)
[2024-10-09 02:21] VITALS: BP 149/61
[2024-10-09 06:23] LABS: Bun/Creatinine Ratio 29.1 (12.0-20.0); Calcium, Blood 8.5 mg/dL (8.5-10.1); Creatinine, Blood 2.37 mg/dL (0.60-1.20); Potassium, Blood 4.9 mmol/L (3.5-5.5)
--- NOTE | 2024-10-09 06:42 | NUR ---
SHIFT SUMMARY ALERT & ORIENTED. VSS. BIG TOE APPEARS DRY AND STITCHED, FOR A NEW SHOE ENMANUEL. APPEARS COMFORTABLE AND WELL-RESTED. FOR NEPHRO CONSULT IN AM. MAINTAINED CONTACT PRECAUTIONS. TOLERATED IV ABX. OCCASIONALLY WAKING UP USING URINAL CONTINENT AND NO CONCERN OVERNIGHT.
[2024-10-09 08:18] VITALS: BP 130/65
[2024-10-09] MEDS ORDERED: Vancomycin HCL 750 MG in NS 250 ML IV SCH (09:00)
--- NOTE | 2024-10-09 15:58 | NUR ---
DAY SUMMARY NO ACUTE CHANGES THIS SHIFT, VSS, DENIES PAIN, REPLACED POST OP SHOE TODAY, PT AMBULATING W/SBA, CALLING APPROPIATELY, PLAN IS TO DISCHARGE 10/10. WILL CONT TO MONITOR UNTIL REPORT GIVEN TO ONCOMING NURSE.
[2024-10-09 16:00] VITALS: BP 147/56
[2024-10-09] MEDS ORDERED: Sodium Zirconium Cyclosilicate 10 GM Packet PO ONE (18:55)
[2024-10-09 19:30] VITALS: BP 119/72
[2024-10-10 03:38] VITALS: BP 125/96
--- NOTE | 2024-10-10 06:14 | NUR ---
SHIFT SUMMARY: AOX4, BUT CAN BE FORGETFUL AT TIMES. ABLE TO MAKE NEEDS KNOWN. PT WAS ALSO OCCASSIONALLY GRUNTING THROUGHOUT THE NIGHT, WHEN CHECKED ON PT STATED NOT NEEDING ANY ASSISTANCE. DRESSING TO R FOOT IS C/D/I. TYLENOL GIVEN FOR PAIN. CALL LIGHT IS WITHIN REACH. BED IS LOW AND LOCKED.
[2024-10-10 07:11] VITALS: BP 124/79
[2024-10-10 08:41] LABS: Bun/Creatinine Ratio 31.9 (12.0-20.0); Calcium, Blood 8.3 mg/dL (8.5-10.1); Creatinine, Blood 2.07 mg/dL (0.60-1.20); Potassium, Blood 4.6 mmol/L (3.5-5.5)
[2024-10-10 08:43] LABS: Vancomycin, Trough 16.9 ug/mL (5.0-10.0)
[2024-10-10] MEDS ORDERED: NS 250 ML IV PRN (09:55)
[2024-10-10] MEDS ORDERED: LACT PO (12:06)
[2024-10-10] MEDS ORDERED: DOXY100 PO (12:07)
[2024-10-10] MEDS ORDERED: ENTRESTO 24 MG1 EACH PO (12:18)
[2024-10-10] MEDS ORDERED: ERGO50000 PO (13:34)
[2024-10-10 13:42] LABS: Albumin, Blood 2.4 g/dL (3.4-5.0); Anion Gap 13 mmol/L (3-11); Blood Urea Nitrogen 62 mg/dL (8-24); Bun/Creatinine Ratio 28.4 (12.0-20.0); CO2, Blood 18 mmol/L (21-32); Calcium, Blood 7.9 mg/dL (8.5-10.1); Chloride, Blood 110 mmol/L (98-108); Creatinine, Blood 2.18 mg/dL (0.60-1.20); Glomerular Filtration Rate 30 (60-); Glucose, Blood 143 mg/dL (70-99); Magnesium, Blood 2.3 mg/dL (1.6-2.4); Phosphorus, Blood 4.2 mg/dL (2.5-4.9); Sodium, Blood 136 mmol/L (136-145)
--- NOTE | 2024-10-10 14:14 | NUR ---
DISCHARGE NOTE PT A&OX4 WITH FORGETFULLNESS. FAMILY AT BEDSIDE. PT ADMITTED DUE TO CELLULITIS OF FOOT. PT IS SBA WITH FWW AND AMBULATES WITH SURGICAL BOOT. PT RECEIVED DOSE OF IV VANCO THIS AM. PT REPORTS NO PAIN/SOB AND CHEST DISCOMFORT. PT ON ROOM AIR. SPO2 MAINTAINING ABOVE 90%. DR. WATERS CAME TO SEE PT. DR. THRASHER ORDERED DISCHARGE. NEPHROLOGY SAW PT TODAY. WENT OVER DISCHARGE INSTRUCTIONS AND MEDS WITH PT. MEDS FAXED TO PHARMACY. DR. THRASHER GAVE VERBAL INSTRUCTIONS FOR PT TO STOP POTASSIUM AND LISINOPRIL. IV D/C. PT ACHS BLOOD SUGARS. PT ESCORTED TO LOBBY VIA SEWING MACHINE ADJUSTER BY WHEELCHAIR. PT WENT WITH PERSONAL BELONGINGS.
== END 2024-10-10 13:53 | disposition home health service (06) | DRG 863 ==
LOC: ER 16:50 → MEDS 16:51
PROVIDERS: Internal Medicine; Student in an Organized Health Care Education/Training Program; ADMIT Student in an Organized Health Care Education/Training Program
DX: T81.49XA Infection following a procedure, other surgical site, initial encounter (principal); I13.0 Hypertensive heart and chronic kidney disease with heart failure and stage 1 through stage 4 chronic kidney disease, or unspecified chronic kidney disease; L03.115 Cellulitis of right lower limb; N17.9 Acute kidney failure, unspecified; I50.22 Chronic systolic (congestive) heart failure; N18.4 Chronic kidney disease, stage 4 (severe); T81.44XA Sepsis following a procedure, initial encounter; E87.5 Hyperkalemia; D63.1 Anemia in chronic kidney disease; I25.10 Atherosclerotic heart disease of native coronary artery without angina pectoris; E78.5 Hyperlipidemia, unspecified; E03.9 Hypothyroidism, unspecified; E11.22 Type 2 diabetes mellitus with diabetic chronic kidney disease; G47.33 Obstructive sleep apnea (adult) (pediatric); Z89.411 Acquired absence of right great toe; Z95.1 Presence of aortocoronary bypass graft; Z98.890 Other specified postprocedural states; Z90.89 Acquired absence of other organs; Z88.1 Allergy status to other antibiotic agents; Z88.2 Allergy status to sulfonamides; Z79.82 Long term (current) use of aspirin; Z79.4 Long term (current) use of insulin; Z79.890 Hormone replacement therapy; Z79.899 Other long term (current) drug therapy
CPT/HCPCS: 36415; 71046; 73700; 80048; 80053; 80069; 80202; 82306; 82947; 83605; 83735; 83970; 85025; 87040; 93005; 93010; 94762; 96361; 96365; 96366; 96367; 99285-25; A9270; G0378; J0696; J1815; J3370; J7030; J7040; J7050

== ENCOUNTER 2024-11-03 19:19 | Emergency (ER) | payer MEDICARE ==
[~2024-11-03] VITALS: Ht 172.7 cm; Wt 108.9 kg
[~2024-11-03 19:19] MED LIST changes: +DOXY100 PO; +ERGO50000 PO; +LACT PO
[2024-11-03 19:59] LABS: BASOPHILS ABSOLUTE AUTO 0.04 K/mm3 (0.00-0.23); BASOPHILS PERCENT AUTO 1 % (0-2); EOSINOPHILS ABSOLUTE AUTO 0.21 K/mm3 (0.00-0.68); EOSINOPHILS PERCENT AUTO 3 % (0-6); Hematocrit 35.6 % (37.0-53.0); Hemoglobin 11.5 g/dL (13.5-17.5); IMMATURE GRAN ABSOLUTE AUTO 0.03 K/mm3 (0.00-0.10); IMMATURE GRAN PERCENT AUTO 0 % (0-1); LYMPHOCYTES ABSOLUTE AUTO 1.33 K/mm3 (0.84-5.20); LYMPHOCYTES PERCENT AUTO 16 % (21-46); MONOCYTES ABSOLUTE AUTO 0.42 K/mm3 (0.16-1.47); MONOCYTES PERCENT AUTO 5 % (4-13); Mean Corpuscular HGB Conc 32.3 g/dL (31.5-36.5); Mean Corpuscular Volume 92 fL (80-100); NEUTROPHILS ABSOLUTE AUTO 6.17 K/mm3 (1.96-9.15); NEUTROPHILS PERCENT AUTO 75 % (41-73); NRBC ABSOLUTE 0.00 K/mm3 (0.00-0.02); NRBC Auto 0.0 /100 WBC (0.0-0.2); Platelet Count 174 K/mm3 (150-400); RDW Coefficient Variation 13.7 % (11.7-14.2); RDW Standard Deviation 46.0 fL (35.1-46.3)
[2024-11-03 20:03] LABS: pH Blood Venous 7.37 (7.34-7.37)
[2024-11-03] MEDS ORDERED: Vancomycin (Pharmacy Consult) IV PRN (20:25)
[2024-11-03] MEDS ORDERED: Cefepime HCl 2,000 MG in NS 100 ML IV ONE (20:25)
[2024-11-03] MEDS ORDERED: NS 1,000 ML IV SCH (20:25)
[2024-11-03 20:29] LABS: Magnesium, Blood 2.3 mg/dL (1.6-2.4)
[2024-11-03 20:37] LABS: Alanine Aminotransfer (ALT/SGP 40.0 U/L (12-78); Albumin, Blood 2.6 g/dL (3.4-5.0); Albumin/Globulin Ratio 0.7 (0.8-1.8); Anion Gap 10.0 mmol/L (3-11); Aspartate Aminotrans (AST/SGOT 29.0 U/L (12-37); Bilirubin, Total 0.5 mg/dL (0.1-1.0); Blood Urea Nitrogen 57.0 mg/dL (8-24); C-Reactive Protein, High Sens. 5.43 mg/L (0.000-3.000); CO2, Blood 26.0 mmol/L (21-32); Calcium, Blood 8.2 mg/dL (8.5-10.1); Chloride, Blood 102.0 mmol/L (98-108); Creatinine, Blood 2.58 mg/dL (0.60-1.20); Globulin, Blood 3.7 g/dL (2.2-4.0); Glucose, Blood 353.0 mg/dL (70-99); Phosphorus, Blood 4.9 mg/dL (2.5-4.9); Potassium, Blood 4.9 mmol/L (3.5-5.5); Sodium, Blood 133.0 mmol/L (136-145); Total Protein, Blood 6.3 g/dL (6.4-8.2)
[2024-11-03] MEDS ORDERED: Insulin Regular 100 UNIT/ML 10ML Vial SC SCH (21:00)
[2024-11-03] MEDS ORDERED: DOBUtamine 250 MG/D5W 250 ML 250 ML IV SCH (22:15)
[2024-11-03] MEDS ORDERED: Calcium Carbonate 1,250 MG TABLET PO ONE ×2 (22:20→22:40)
[2024-11-03] MEDS ORDERED: Glucagon 1 MG/KIT VIAL IV ONE (23:15)
[2024-11-03] MEDS ORDERED: Ondansetron HCl 2 MG / ML 2ML Vial IV ONE (23:15)
[2024-11-03] MEDS ORDERED: Glucagon, Human Recombinant 1 MG/Vial IV ONE (23:45)
[2024-11-04 01:45] VITALS: BP 172/45
== END 2024-11-04 02:52 | disposition short-term general hospital (02) ==
LOC: ER 19:19
PROVIDERS: Student in an Organized Health Care Education/Training Program
DX: R00.1 Bradycardia, unspecified (principal); E11.65 Type 2 diabetes mellitus with hyperglycemia; E86.0 Dehydration; N17.9 Acute kidney failure, unspecified; E11.69 Type 2 diabetes mellitus with other specified complication; M86.9 Osteomyelitis, unspecified; I13.0 Hypertensive heart and chronic kidney disease with heart failure and stage 1 through stage 4 chronic kidney disease, or unspecified chronic kidney disease; I50.22 Chronic systolic (congestive) heart failure; E11.22 Type 2 diabetes mellitus with diabetic chronic kidney disease; N18.30 Chronic kidney disease, stage 3 unspecified; G47.33 Obstructive sleep apnea (adult) (pediatric); E03.9 Hypothyroidism, unspecified; E78.5 Hyperlipidemia, unspecified; I25.10 Atherosclerotic heart disease of native coronary artery without angina pectoris; Z95.1 Presence of aortocoronary bypass graft; Z87.891 Personal history of nicotine dependence; Z88.2 Allergy status to sulfonamides; Z88.0 Allergy status to penicillin; Z88.1 Allergy status to other antibiotic agents; Z79.4 Long term (current) use of insulin; Z79.82 Long term (current) use of aspirin; Z79.890 Hormone replacement therapy; Z79.899 Other long term (current) drug therapy; Z59.89 Other problems related to housing and economic circumstances
CPT/HCPCS: 36415; 71045; 73620; 80053; 82803; 82947; 83605; 83735; 84100; 84484; 85025; 85651; 86141; 87040; 93005; 93010; 96365; 96366; 96367; 96375; 99285-25; A9270; J0692; J1610; J1815; J2405; J3373; J7030; J7040